=== PATIENT | male | born 1965 | race Caucasian/White ===

== ENCOUNTER 2019-03-14 09:59 | Inpatient (IN) | payer OTHER ==
[2019-03-14 11:27] VITALS: BMI 27.7
--- NOTE | 2019-03-14 12:21 | HP ---
COWS - Scale Resting Pulse: 0= [place] 80 or Below Sweatin= Chills/Flushing Restless Observation: 1= Difficult to Sit Still Pupil Size: 2= Moderately Dilated Bone or Joint Aches: 1= Mild Discomfort Runny Nose/ Eye Tearin= Runny Nose/Eyes GI Upset > 30mins: 1= Stomach Cramp Tremor Observation: 2= Slight Tremor Visible Yawning Observation: 0= None Anxiety or Irritability: 2=Irritable/Anxious Goose Flesh Skin: 0=Smooth Skin COWS Score: 12 CIWA Score Nausea/Vomitin Muscle Tremors: 3 Anxiety: 3 Agitation: 4-Moderately Restless Paroxysmal Sweats: 2 Orientation: 0-Oriented Tacttile Disturbances: 0-None Auditory Disturbances: 2-Mild Harshness/Frighten Visual Disturbances: 2-Mild Sensitivity Headache: 2-Mild CIWA-Ar Total Score: 20 - Admission Criteria OASAS Guidelines: Admission for Medically Managed Detox: Requires at least one of the followin. CIWA greater than 12 2. Seizures within the past 24 hours 3. Delirium tremens within the past 24 hours 4. Hallucinations within the past 24 hours 5. Acute intervention needed for co occurring medical disorder 6. Acute intervention needed for co occurring psychiatric disorder 7. Severe withdrawal that cannot be handled at a lower level of care (continued vomiting, continued diarrhea, abnormal vital signs) requiring intravenous medication and/or fluids 8. Patient presents the following: CIWA greater than 12 Admission Criteria Met: Admission criteria met Admission ROS [facility] Chief Complaint: I NEED TO STOP Allergies/Adverse Reactions: Allergies Allergy/AdvReac Type Severity Reaction Status Date / Time celery Allergy Intermediate Hives Verified 03/14/19 11:23 Fish Containing Products Allergy Intermediate Hives Verified 03/14/19 11:23 History of Present Illness: ANGIE HAS BEEN USING SUBSTANCES SINCE AGE 17 MODERATE USE HEROIN AGE 40 HAS HAD 1+ YEAR ABSTINENCE, SP DETOX REHAB PREVIOUS DETOX ON SUBOXONE MAINT - Ebola screening Have you traveled outside of the country in the last 21 days: No (N) Have you had contact with anyone from an Ebola affected area: No Do you have a fever: No - Review of Systems Constitutional: Loss of Appetite, Malaise EENT: reports: Nose Congestion Respiratory: reports: No Symptoms reported Cardiac: reports: No Symptoms Reported GI: reports: Abdominal cramping : reports: No Symptoms Reported Musculoskeletal: reports: No Symptoms Reported Integumentary: reports: Erythema, Sweating Neuro: reports: Tremors Endocrine: reports: No Symptoms Reported Hematology: reports: No Symptoms Reported Psychiatric: reports: Agitated, Anxious Patient History - Patient Medical History Hx Anemia: No Hx Asthma: No Hx Chronic Obstructive Pulmonary Disease (COPD): No Hx Cancer: No Hx Cardiac Disorders: No Hx Congestive Heart Failure: No Hx Hypertension: No Hx Hypercholesterolemia: No Hx Pacemaker: No HX Cerebrovascular Accident: No Hx Seizures: No Hx Dementia: No Hx Diabetes: No Hx Gastrointestinal Disorders: No Hx Liver Disease: No Hx Genitourinary Disorders: No Hx Sexually Transmitted Disorders: No Hx Renal Disease (ESRD): No Hx Thyroid Disease: No Hx Human Immunodeficiency Virus (HIV): No Hx Hepatitis C: No Hx Depression: No Hx Suicide Attempt: No Hx Bipolar Disorder: No Hx Schizophrenia: No - Patient Surgical History Past Surgical History: No - PPD History Previous Implant?: Yes Documented Results: Negative w/o proof - Smoking Cessation Smoking history: Current every day smoker Have you smoked in the past 12 months: Yes Aproximately how many cigarettes per day: 20 Initiated information on smoking cessation: Yes 'Breaking Loose' booklet given: 03/14/19 - Substances abused Alcohol Substance route: Oral Frequency: Daily Amount used: 3 pints of vodka Age of first use: 15 Date of last use: 03/14/19 Heroin Substance route: Inhalation Frequency: Daily Amount used: 6 bags Age of first use: 40 Date of last use: 03/13/19 Family Disease History - Family Disease History Family Disease History: Diabetes: Mother, Heart Disease: Mother, CA: Mother Admission Physical Exam [facility] - Vital Signs Vital Signs: Vital Signs - 24 hr 03/14/19 11:22 Temperature 97.9 F Pulse Rate 79 Respiratory 20 Rate Blood Pressure 137/86 - Physical General Appearance: Yes: Mild Distress HEENTM: Yes: EOMI, Normocephalic, Nasal Congestion Respiratory: Yes: Chest Non-Tender, Lungs Clear, Normal Breath Sounds Neck: Yes: No masses,lesions,Nodules Breast: Yes: Breast Exam Deferred Cardiology: Yes: Within Normal Limits, Regular Rhythm, Regular Rate, S1, S2 Abdominal: Yes: Normal Bowel Sounds, Non Tender Genitourinary: Yes: Within Normal Limits Back: Yes: Within Normal Limits, Normal Inspection Musculoskeletal: Yes: full range of Motion Extremities: Yes: Other (foot maceration) Neurological: Yes: breaker hand II-XII NML intact, Fully Oriented, Alert Integumentary: Yes: Within Normal Limits, Normal Color Lymphatic: Yes: Within Normal Limits - Diagnostic (1) Opiate dependence Current Visit: Yes Status: Acute (2) Alcohol dependence Current Visit: Yes Status: Acute (3) Alcohol withdrawal Current Visit: Yes Status: Acute (4) Cocaine abuse Current Visit: Yes Status: Acute Cleared for Admission S - Detox or Rehab [facility] Level of Care: Medically Supervised Breathalyzer - Breathalyzer Breathalyzer: 0.015 Urine Drug Screen - Test Device Lot number: [id number] Expiration date: 12/21/20 - Control Is test valid?: Yes - Results Drug screen NEGATIVE: No Urine drug screen results: VANESSA-Cocaine, FEN-Fentanyl, MOP-Opiates, OXY-Oxycodone , MTD-Methadone Inpatient Rehab Admission - Rehab Decision to Admit Inpatient rehab admission?: No
[2019-03-14] MEDS ORDERED: BISMUTH SUBSALICYLATE 524 MG/30 ML UD PO PRN (12:34)
[2019-03-14] MEDS ORDERED: MENTHOL/PHENOL 1 EACH UD MM PRN (12:34)
[2019-03-14] MEDS ORDERED: MAG HYDROX/AL HYDROX/SIMETH 30 ML UNIT-DOSE CUP PO PRN (12:34)
[2019-03-14] MEDS ORDERED: IBUPROFEN 400 MG TABLET (FP) PO PRN (12:34)
[2019-03-14] MEDS ORDERED: chlordiazePOXIDE HCL 10 MG CAPSULE PO PRN (12:34)
[2019-03-14] MEDS ORDERED: MAGNESIUM HYDROX 2400MG/30ML ORAL SUSPENSION 30 ML CUP PO PRN (12:34)
[2019-03-14] MEDS ORDERED: ACETAMINOPHEN 325 MG TABLET (FP) PO PRN ×2 (12:34)
[2019-03-14] MEDS ORDERED: MAGNESIUM CITRATE 300 ML BOTTLE PO PRN (12:34)
[2019-03-14] MEDS ORDERED: METHADONE HCL 10 MG TABLET (FOR DETOX USE ONLY) PO ONE (13:00)
[2019-03-14] MEDS: NICOTINE 21 MG/24 HOURS TOPICAL PATCH TD SCH (13:49)
[2019-03-14] MEDS: chlordiazePOXIDE HCL 25 MG CAPSULE PO SCH ×2 (13:49→22:28)
[2019-03-14] MEDS: NICOTINE POLACRILEX 2 MG GUM BUC PRN ×3 (13:52→20:35)
[2019-03-14] MEDS: TOLNAFTATE 1% POWDER 45 GM POW TP SCH ×2 (15:20→22:29)
--- NOTE | 2019-03-14 17:00 | EKG ---
Test Reason : Blood Pressure : / mmHG Vent. Rate : 061 BPM Atrial Rate : 061 BPM P-R Int : 158 ms QRS Dur : 092 ms QT Int : 438 ms P-R-T Axes : 076 -02 062 degrees QTc Int : 440 ms NORMAL SINUS RHYTHM NORMAL ECG NO PREVIOUS ECGS AVAILABLE Confirmed by AMOR RODRIGUEZ MD ([id number]) on 03/14/2019 4:59:50 PM Referred By: Confirmed By:AMOR RODRIGUEZ MD
[2019-03-14 17:25] LABS: HEMOGLOBIN 15.4 GM/dL (11.7-16.9); MCH 28.8 pg (25.7-33.7); MCHC 32.7 g/dl (32.0-35.9); MEAN PLT VOLUME 9.8 fl (7.5-11.1); PLATELET COUNT 227 K/MM3 (134-434); RBC 5.35 M/mm3 (4.00-5.60); RDW 17.4 % (11.9-15.9)
[2019-03-14 17:39] LABS: ALBUMIN 3.9 g/dl (3.4-5.0); BILIRUBIN,TOTAL 0.4 mg/dL (0.2-1); BLOOD UREA NITROGEN 12.4 mg/dL (7-18); CALCIUM 8.8 mg/dL (8.5-10.1); CREATININE 0.9 mg/dL (0.55-1.3); POTASSIUM 3.9 mmol/L (3.5-5.1); TOT PROT 7.3 g/dl (6.4-8.2)
[2019-03-14] MEDS: MELATONIN 5 MG TABLETS PO PRN (22:28)
[2019-03-14] MEDS: THIAMINE HCL 100 MG TABLET (FP) PO SCH (22:28)
[2019-03-15] MEDS: chlordiazePOXIDE HCL 25 MG CAPSULE PO SCH ×3 (05:51→21:27)
[2019-03-15] MEDS: NICOTINE POLACRILEX 2 MG GUM BUC PRN ×5 (05:55→19:07)
[2019-03-15] MEDS: cloNIDine HCL 0.1 MG TABLET PO PRN ×2 (07:08→20:23)
[2019-03-15] MEDS ORDERED: METHADONE HCL 5 MG TABLET (FOR DETOX USE ONLY) PO ONE (10:00)
[2019-03-15] MEDS: NICOTINE 21 MG/24 HOURS TOPICAL PATCH TD SCH (10:25)
[2019-03-15] MEDS: PRENATAL VITAMINS W/ FOLIC ACID TABLET (FP) PO SCH (10:25)
[2019-03-15] MEDS: TOLNAFTATE 1% POWDER 45 GM POW TP SCH ×2 (10:28→21:31)
--- NOTE | 2019-03-15 12:17 | PN ---
[facility] CIWA - CIWA Score Nausea/Vomitin-No Nausea/No Vomiting Muscle Tremors: 3 Anxiety: 3 Agitation: 3 Paroxysmal Sweats: 2 Orientation: 0-Oriented Tacttile Disturbances: 0-None Auditory Disturbances: 0-None Visual Disturbances: 0-None Headache: 0-None Present CIWA-Ar Total Score: 11 S COWS - Scale Resting Pulse: 0= [place] 80 or Below Sweatin=Flushed/Facial Moisture Restless Observation: 1= Difficult to Sit Still Pupil Size: 0= Normal to Room Light Bone or Joint Aches: 2= Severe Diffuse Aches Runny Nose/ Eye Tearin= Nasal Congestion GI Upset > 30mins: 0= None Tremor Observation of Outstretched Hands: 2= Slight Tremor Visible Yawning Observation: 1= 1-2x During Session Anxiety or Irritability: 1=Feels Anxious/Irritable Goose Flesh Skin: 0=Smooth Skin COWS Score: 10 [facility] Progress Note (SOAP) Subjective: sweats shakes chills body aches irritable agitation Objective: 03/15/19 12:16 Vital Signs Temperature 97.9 F 03/15/19 09:48 Pulse Rate 65 03/15/19 09:48 Respiratory Rate 16 03/15/19 09:48 Blood Pressure 144/91 03/15/19 09:48 O2 Sat by Pulse Oximetry (%) Laboratory Tests 03/14/19 03/14/19 03/14/19 12:44 12:44 12:44 WBC 10.0 RBC 5.35 Hgb 15.4 Hct 47.0 MCV 88.0 MCH 28.8 MCHC 32.7 RDW 17.4 H Plt Count 227 MPV 9.8 Sodium 141 Potassium 3.9 Chloride 103 Carbon Dioxide 31 Anion Gap 7 L BUN 12.4 Creatinine 0.9 Est GFR (CKD-EPI)AfAm 112.62 Est GFR (CKD-EPI)NonAf 97.17 Random Glucose 87 Calcium 8.8 Total Bilirubin 0.4 AST 31 ALT 35 Alkaline Phosphatase 104 Total Protein 7.3 Albumin 3.9 RPR Titer Nonreactive labs noted aaox3 ambulating no acute distress Assessment: 03/15/19 12:17 withdrawal sx Plan: continue detox increase fluids
[2019-03-15] MEDS: THIAMINE HCL 100 MG TABLET (FP) PO SCH (21:27)
[2019-03-15] MEDS: MELATONIN 5 MG TABLETS PO PRN (21:28)
[2019-03-16] MEDS: METHOCARBAMOL 500 MG TABLET PO PRN ×2 (02:45→12:43)
[2019-03-16] MEDS: hydrOXYzine PAMOATE 25 MG CAPSULE (FP) PO PRN ×2 (05:23→19:03)
[2019-03-16] MEDS: chlordiazePOXIDE 5 MG CAPSULE PO SCH ×3 (05:23→21:46)
[2019-03-16] MEDS ORDERED: cloNIDine HCL 0.1 MG TABLET PO ONE (09:46)
[2019-03-16] MEDS ORDERED: METHADONE HCL 10 MG TABLET (FOR DETOX USE ONLY) PO ONE (10:00)
[2019-03-16] MEDS: PRENATAL VITAMINS W/ FOLIC ACID TABLET (FP) PO SCH (10:44)
[2019-03-16] MEDS: NICOTINE 21 MG/24 HOURS TOPICAL PATCH TD SCH (10:45)
[2019-03-16] MEDS: TOLNAFTATE 1% POWDER 45 GM POW TP SCH ×2 (10:46→21:46)
--- NOTE | 2019-03-16 11:47 | PN ---
[facility] CIWA - CIWA Score Nausea/Vomitin-No Nausea/No Vomiting Muscle Tremors: 2 Anxiety: 3 Agitation: 1-Slight > Activity Paroxysmal Sweats: 3 Orientation: 0-Oriented Tacttile Disturbances: 0-None Auditory Disturbances: 0-None Visual Disturbances: 0-None Headache: 1-Very Mild CIWA-Ar Total Score: 10 [facility] COWS - Scale Resting Pulse: 0= [place] 80 or Below Sweatin= Chills/Flushing Restless Observation: 1= Difficult to Sit Still Pupil Size: 0= Normal to Room Light Bone or Joint Aches: 2= Severe Diffuse Aches Runny Nose/ Eye Tearin= None GI Upset > 30mins: 0= None Tremor Observation of Outstretched Hands: 2= Slight Tremor Visible Yawning Observation: 1= 1-2x During Session Anxiety or Irritability: 2=Irritable/Anxious Goose Flesh Skin: 0=Smooth Skin COWS Score: 9 [facility] Progress Note (SOAP) Subjective: c/o headache, sweats, anxiety/irritability, and shakes. Objective: 03/16/19 11:46 Vital Signs 03/16/19 03/16/19 03/16/19 04:26 06:00 09:57 Temperature 97.7 F Pulse Rate 80 78 Respiratory 18 18 18 Rate Blood Pressure 159/111 H 154/22 L 03/16/19 09:58 Temperature Pulse Rate Respiratory Rate Blood Pressure 150/105 H Lab Results WBC 10.0 K/mm3 (4.0-10.0) 03/14/19 12:44 RBC 5.35 M/mm3 (4.00-5.60) 03/14/19 12:44 Hgb 15.4 GM/dL (11.7-16.9) 03/14/19 12:44 Hct 47.0 % (35.4-49) 03/14/19 12:44 MCV 88.0 fl (80-96) 03/14/19 12:44 MCHC 32.7 g/dl (32.0-35.9) 03/14/19 12:44 RDW 17.4 % (11.9-15.9) H 03/14/19 12:44 Plt Count 227 K/MM3 (134-434) 03/14/19 12:44 Sodium 141 mmol/L (136-145) 03/14/19 12:44 Potassium 3.9 mmol/L (3.5-5.1) 03/14/19 12:44 Chloride 103 mmol/L (98-107) 03/14/19 12:44 Carbon Dioxide 31 mmol/L (21-32) 03/14/19 12:44 Anion Gap 7 MMOL/L (8-16) L 03/14/19 12:44 BUN 12.4 mg/dL (7-18) 03/14/19 12:44 Creatinine 0.9 mg/dL (0.55-1.3) 03/14/19 12:44 Random Glucose 87 mg/dL (74-106) 03/14/19 12:44 Calcium 8.8 mg/dL (8.5-10.1) 03/14/19 12:44 Labs noted. Assessment: 03/16/19 11:46 AOX3, in no acute respiratory distress. Full ROM, ambulating in the unit. Withdrawal symptoms. Elevated BP. Plan: continue detox. Give clonidine 0.1mg po once. Repeat and monitor Vital signs.
[2019-03-16] MEDS: NICOTINE POLACRILEX 2 MG GUM BUC PRN ×2 (15:47→18:08)
[2019-03-16] MEDS: THIAMINE HCL 100 MG TABLET (FP) PO SCH (21:46)
[2019-03-16] MEDS: MELATONIN 5 MG TABLETS PO PRN (21:48)
[2019-03-16] MEDS ORDERED: hydrOXYzine PAMOATE 50 MG CAPSULE (FP) PO ONE (23:36)
[2019-03-16] MEDS ORDERED: MELATONIN 5 MG TABLETS PO ONE (23:40)
[2019-03-17] MEDS ORDERED: chlordiazePOXIDE HCL 10 MG CAPSULE PO PRN
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
[2019-03-17] MEDS ORDERED: METHADONE HCL 5 MG TABLET (FOR DETOX USE ONLY) PO ONE (06:00)
[2019-03-17] MEDS: chlordiazePOXIDE HCL 10 MG CAPSULE PO SCH ×3 (06:47→22:33)
--- NOTE | 2019-03-17 07:38 | PN ---
[facility] Progress Note Note: CLIENT RETURNED FROM [facility] REFUSED XRAY REQUESTING MRI WHILE THERE. CLIENT TO FOLLOW UP OUT PATIENT PER RECORDS. CLIENT A/O X3 NAD LYING IN BED COMFORTABLY
[2019-03-17] MEDS: NICOTINE 21 MG/24 HOURS TOPICAL PATCH TD SCH (09:48)
[2019-03-17] MEDS: PRENATAL VITAMINS W/ FOLIC ACID TABLET (FP) PO SCH (09:48)
[2019-03-17] MEDS: TOLNAFTATE 1% POWDER 45 GM POW TP SCH ×2 (09:50→22:33)
[2019-03-17] MEDS: NICOTINE POLACRILEX 2 MG GUM BUC PRN ×3 (09:51→15:59)
[2019-03-17] MEDS ORDERED: cloNIDine HCL 0.1 MG TABLET PO PRN (14:24)
--- NOTE | 2019-03-17 16:07 | PN ---
[facility] CIWA - CIWA Score Nausea/Vomitin-No Nausea/No Vomiting Muscle Tremors: None Anxiety: 3 Agitation: 3 Paroxysmal Sweats: No Perspiration Orientation: 0-Oriented Tacttile Disturbances: 0-None Auditory Disturbances: 0-None Visual Disturbances: 0-None Headache: 0-None Present CIWA-Ar Total Score: 6 S COWS - Scale Resting Pulse: 0= [place] 80 or Below Sweatin= No chills or Flushing Restless Observation: 3= Extraneous Movement Pupil Size: 0= Normal to Room Light Bone or Joint Aches: 1= Mild Discomfort Runny Nose/ Eye Tearin= None GI Upset > 30mins: 0= None Tremor Observation of Outstretched Hands: 0= None Yawning Observation: 0= None Anxiety or Irritability: 2=Irritable/Anxious Goose Flesh Skin: 0=Smooth Skin COWS Score: 6 [facility] Progress Note (SOAP) Subjective: Agitated, stated he just returned from the hospital this morning and trying to get some rest. Noted with elevated b/p. He reports h/o htn and that he is not on any medication. Objective: 03/17/19 16:04 Last Vital Signs Temp Pulse Resp BP Pulse Ox 97.9 F 71 18 154/113 H 03/17/19 13:13 03/17/19 13:13 03/17/19 13:13 03/17/19 13:13 Elevated b/p (has htn as per patient but not on medication) Laboratory Tests 03/14/19 03/14/19 03/14/19 12:44 12:44 12:44 WBC 10.0 RBC 5.35 Hgb 15.4 Hct 47.0 MCV 88.0 MCH 28.8 MCHC 32.7 RDW 17.4 H Plt Count 227 MPV 9.8 Sodium 141 Potassium 3.9 Chloride 103 Carbon Dioxide 31 Anion Gap 7 L BUN 12.4 Creatinine 0.9 Est GFR (CKD-EPI)AfAm 112.62 Est GFR (CKD-EPI)NonAf 97.17 Random Glucose 87 Calcium 8.8 Total Bilirubin 0.4 AST 31 ALT 35 Alkaline Phosphatase 104 Total Protein 7.3 Albumin 3.9 RPR Titer Nonreactive Labs reviewed Assessment: 03/17/19 16:07 Withdrawal sxs Uncontrolled HTN noted Plan: Continue detox Encouraged PO water intake Can discharge patient tomorrow if b/p stable HTN, uncontrolled: clonidine 0.1mg PO q8hr prn, consider initiating routine medication such as norvasc 5mg PO daily. Instructed to follow up with his PCP post discharge for management of his HTN.
[2019-03-17] MEDS: METHOCARBAMOL 500 MG TABLET PO PRN (18:07)
[2019-03-17] MEDS: THIAMINE HCL 100 MG TABLET (FP) PO SCH (22:32)
[2019-03-17] MEDS: MELATONIN 5 MG TABLETS PO PRN (22:33)
[2019-03-18] MEDS ORDERED: chlordiazePOXIDE HCL 10 MG CAPSULE PO ONE (05:00)
[2019-03-18] MEDS: PRENATAL VITAMINS W/ FOLIC ACID TABLET (FP) PO SCH (09:15)
[2019-03-18] MEDS: NICOTINE 21 MG/24 HOURS TOPICAL PATCH TD SCH (09:15)
[2019-03-18] MEDS: TOLNAFTATE 1% POWDER 45 GM POW TP SCH (09:15)
--- NOTE | 2019-03-18 09:30 | PN ---
S Progress Note Note: pt refused to have an x-ray to his back; pt states he prefers to get an MRI and is going to see his PCP for a referral.
--- NOTE | 2019-03-18 09:33 | DS ---
[facility] Detox Discharge Summary Admission Date: 03/14/19 Discharge Date: 03/18/19 - History Present History: Alcohol Dependence, Cocaine Dependence, Opioid Dependence - Physical Exam Results Vital Signs: Vital Signs Temperature 97.3 F L 03/18/19 06:00 Pulse Rate 72 03/18/19 06:00 Respiratory Rate 18 03/18/19 06:00 Blood Pressure 134/97 03/18/19 06:00 O2 Sat by Pulse Oximetry (%) Pertinent Admission Physical Exam Findings: pt arrived in withdrawal sx Vital Signs Temperature 97.3 F L 03/18/19 06:00 Pulse Rate 72 03/18/19 06:00 Respiratory Rate 18 03/18/19 06:00 Blood Pressure 134/97 03/18/19 06:00 O2 Sat by Pulse Oximetry (%) Laboratory Tests 03/14/19 03/14/19 03/14/19 12:44 12:44 12:44 WBC 10.0 RBC 5.35 Hgb 15.4 Hct 47.0 MCV 88.0 MCH 28.8 MCHC 32.7 RDW 17.4 H Plt Count 227 MPV 9.8 Sodium 141 Potassium 3.9 Chloride 103 Carbon Dioxide 31 Anion Gap 7 L BUN 12.4 Creatinine 0.9 Est GFR (CKD-EPI)AfAm 112.62 Est GFR (CKD-EPI)NonAf 97.17 Random Glucose 87 Calcium 8.8 Total Bilirubin 0.4 AST 31 ALT 35 Alkaline Phosphatase 104 Total Protein 7.3 Albumin 3.9 RPR Titer Nonreactive today pt is aaox3 ambulating no acute distress no s/s of withdrawals - Treatment Hospital Course: Detox Protocol Followed, Detoxed Safely, Responded well, Discharged Condition Good, Rehab Referral Accepted Patient has Accepted a Rehab Referral to: pt declined reheb; referral provided - Medication Discharge Medications: Ambulatory Orders NK [No Known Home Medication] 03/14/19 - Diagnosis (1) Alcohol dependence Current Visit: Yes Status: Chronic Qualifiers: Substance use status: uncomplicated Qualified Code(s): F10.20 - Alcohol dependence, uncomplicated (2) Cocaine abuse Current Visit: Yes Status: Chronic (3) Opiate dependence Current Visit: Yes Status: Chronic Qualifiers: Substance use status: uncomplicated Qualified Code(s): F11.20 - Opioid dependence, uncomplicated (4) Low back pain Current Visit: No Status: Acute - AMA Did Patient Leave Against Medical Advice: No
[2019-03-18 09:34] VITALS: BP 134/97; PULSE 72; TEMP 97.3
== END 2019-03-18 09:30 | disposition home or self-care (01) | DRG 773 ==
LOC: YASAS 09:59 → Y6N 12:46
PROVIDERS: ADMIT Surgery; ATTEND Surgery
PROC: HZ2ZZZZ Detoxification Services for Substance Abuse Treatment (ICD-10-PCS; principal; 2019-03-14)
DX: F11.23 Opioid dependence with withdrawal (principal); F10.230 Alcohol dependence with withdrawal, uncomplicated; F14.10 Cocaine abuse, uncomplicated; I10 Essential (primary) hypertension; M54.5 Low back pain; W01.190A Fall on same level from slipping, tripping and stumbling with subsequent striking against furniture, initial encounter; Y93.89 Activity, other specified; Y92.230 Patient room in hospital as the place of occurrence of the external cause; Y99.8 Other external cause status
CPT/HCPCS: 36415; 80053; 85027; 86480; 86593; 93005; 93010; J0735

== ENCOUNTER 2019-03-17 01:59 | Emergency (ER) | payer OTHER ==
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
[2019-03-17] MEDS ORDERED: ACETAMINOPHEN 500 MG TABLET (FP) PO ONE (02:43)
[2019-03-17] MEDS ORDERED: ACETAMINOPHEN 325 MG TABLET (FP) ONE (03:18)
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
[2019-03-17 05:21] VITALS: BMI 27.7
[2019-03-17 06:56] VITALS: BP 142/92; PULSE 66; TEMP 98.4
== END 2019-03-17 06:05 | disposition home or self-care (01) ==
LOC: JER 01:59
DX: M54.5 Low back pain (principal); W51.XXXA Accidental striking against or bumped into by another person, initial encounter; Y93.89 Activity, other specified; Y92.238 Other place in hospital as the place of occurrence of the external cause; Y99.8 Other external cause status; F10.20 Alcohol dependence, uncomplicated; F11.20 Opioid dependence, uncomplicated
CPT/HCPCS: 99282-25

== ENCOUNTER 2019-04-25 12:11 | Inpatient (IN) | payer OTHER ==
[2019-04-25 15:02] VITALS: BMI 27.0
--- NOTE | 2019-04-25 17:18 | HP ---
COWS - Scale Resting Pulse: 0= [place] 80 or Below Sweatin=Flushed/Facial Moisture Restless Observation: 1= Difficult to Sit Still Pupil Size: 1= Pupils >than Normal Bone or Joint Aches: 2= Severe Diffuse Aches Runny Nose/ Eye Tearin= Nasal Congestion GI Upset > 30mins: 3= Vomiting/Diarrhea Tremor Observation: 4= Gross Tremor/Twitching Yawning Observation: 0= None Anxiety or Irritability: 1=Feels Anxious/Irritable Goose Flesh Skin: 0=Smooth Skin COWS Score: 15 CIWA Score Nausea/Vomitin Muscle Tremors: 4-Moderate,w/Arms Extend Anxiety: 2 Agitation: 2 Paroxysmal Sweats: 2 Orientation: 1-Uncertain about Date Tacttile Disturbances: 1-Very Mild Itch/Numbness Auditory Disturbances: 0-None Visual Disturbances: 0-None Headache: 0-None Present CIWA-Ar Total Score: 15 - Admission Criteria OASAS Guidelines: Admission for Medically Managed Detox: Requires at least one of the followin. CIWA greater than 12 2. Seizures within the past 24 hours 3. Delirium tremens within the past 24 hours 4. Hallucinations within the past 24 hours 5. Acute intervention needed for co occurring medical disorder 6. Acute intervention needed for co occurring psychiatric disorder 7. Severe withdrawal that cannot be handled at a lower level of care (continued vomiting, continued diarrhea, abnormal vital signs) requiring intravenous medication and/or fluids 8. Admitting History and Physical - Smoking History Smoking history: Current every day smoker Have you smoked in the past 12 months: Yes Aproximately how many cigarettes per day: 20 - Alcohol/Substance Use Hx Alcohol Use: Yes Admission [facility] Chief Complaint: "detox from alcohol and heroin" Allergies/Adverse Reactions: Allergies Allergy/AdvReac Type Severity Reaction Status Date / Time celery Allergy Intermediate Hives Verified 04/25/19 14:58 Fish Containing Products Allergy Intermediate Hives Verified 04/25/19 14:58 No Known Drug Allergies Allergy Verified 04/25/19 14:58 History of Present Illness: 53 year old male with a history of heroin and alcohol abuse presents for detox. Was in detox back in 03/14, relapsed 1 week after detox. 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 Family: has 1 son, healthy, lives in [place]; is not Exam Limitations: No Limitations - Ebola screening Have you traveled outside of the country in the last 21 days: No Have you had contact with anyone from an Ebola affected area: No - Review of Systems Constitutional: Chills, Diaphoresis, Loss of Appetite EENT: reports: Nose Congestion Respiratory: reports: Productive cough Cardiac: reports: Palpitations GI: reports: Diarrhea, Nausea, Poor Appetite, Vomiting : reports: No Symptoms Reported Musculoskeletal: reports: Back Pain, Joint Pain Integumentary: reports: No Symptoms Reported Neuro: reports: Headache Endocrine: reports: No Symptoms Reported Hematology: reports: No Symptoms Reported Psychiatric: reports: Judgement Intact, Mood/Affect Appropiate, Orientated x3, Anxious Patient History - Patient Medical History Hx Anemia: No Hx Asthma: No Hx Chronic Obstructive Pulmonary Disease (COPD): No Hx Cancer: No Hx Cardiac Disorders: No Hx Congestive Heart Failure: No Hx Hypertension: No Hx Hypercholesterolemia: No Hx Pacemaker: No HX Cerebrovascular Accident: No Hx Seizures: No Hx Dementia: No Hx Diabetes: No Hx Gastrointestinal Disorders: No Hx Liver Disease: No Hx Genitourinary Disorders: No Hx Sexually Transmitted Disorders: No Hx Renal Disease (ESRD): No Hx Thyroid Disease: No Hx Human Immunodeficiency Virus (HIV): No Hx Hepatitis C: No Hx Depression: No Hx Suicide Attempt: No Hx Bipolar Disorder: No Hx Schizophrenia: No - Patient Surgical History Past Surgical History: No Hx Neurologic Surgery: No Hx Cataract Extraction: No Hx Cardiac Surgery: No Hx Lung Surgery: No Hx Breast Surgery: No Hx Breast Biopsy: No Hx Abdominal Surgery: No Hx Appendectomy: No Hx Cholecystectomy: No Hx Genitourinary Surgery: No Hx Section: No Hx Orthopedic Surgery: No Anesthesia Reaction: No - Smoking Cessation Smoking history: Current every day smoker Have you smoked in the past 12 months: Yes Aproximately how many cigarettes per day: 20 Initiated information on smoking cessation: Yes 'Breaking Loose' booklet given: 04/25/19 - Substances abused Alcohol Substance route: Oral Frequency: Daily Amount used: 3 pints of vodka Age of first use: 15 Date of last use: 04/24/19 Heroin Substance route: Inhalation Frequency: Daily Amount used: 6 bags Age of first use: 40 Date of last use: 04/24/19 Admission Physical Exam [facility] - Vital Signs Vital Signs: Vital Signs - 24 hr 04/25/19 04/25/19 14:58 17:10 Temperature 98.3 F 98.3 F Pulse Rate 72 72 Respiratory 18 18 Rate Blood Pressure 161/126 H 161/126 H - Physical General Appearance: Yes: Within Normal Limits, No Apparent Distress, Nourished, Appropriately Dressed HEENTM: Yes: Within Normal Limits, Hearing grossly Normal, Normal ENT Inspection , Normal Voice Respiratory: Yes: Within Normal Limits, Chest Non-Tender, Lungs Clear, Normal Breath Sounds Neck: Yes: Within Normal Limits Cardiology: Yes: Regular Rhythm, Regular Rate Abdominal: Yes: Normal Bowel Sounds, Non Tender, Flat, Soft Genitourinary: Yes: Within Normal Limits Musculoskeletal: Yes: Within Normal Limits, full range of Motion, Gait Steady Extremities: Yes: Within Normal Limits, Normal Capillary Refill, Normal Range of Motion Neurological: Yes: 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 NML intact, Fully Oriented, Motor Strength 5/5, Normal Mood/Affect Integumentary: Yes: Normal Color, Dry, Warm - Diagnostic (1) Alcohol dependence Current Visit: No Status: Chronic Qualifiers: Substance use status: uncomplicated Qualified Code(s): F10.20 - Alcohol dependence, uncomplicated (2) Opiate dependence Current Visit: No Status: Chronic Qualifiers: Substance use status: uncomplicated Qualified Code(s): F11.20 - Opioid dependence, uncomplicated Cleared for Admission [facility] - Detox or Rehab [facility] Level of Care: Medically Supervised Detox Regimen/Protocol: Methadone/Librium Breathalyzer - Breathalyzer Breathalyzer: 0 Urine Drug Screen - Test Device Lot number: [id number] Expiration date: 12/21/20 - Control Is test valid?: Yes - Results Drug screen NEGATIVE: No Urine drug screen results: MOP-Opiates, OXY-Oxycodone Inpatient Rehab Admission - Rehab Decision to Admit Inpatient rehab admission?: No
[2019-04-25] MEDS ORDERED: MAGNESIUM CITRATE 300 ML BOTTLE PO PRN (17:35)
[2019-04-25] MEDS ORDERED: MAG HYDROX/AL HYDROX/SIMETH 30 ML UNIT-DOSE CUP PO PRN (17:35)
[2019-04-25] MEDS ORDERED: ACETAMINOPHEN 325 MG TABLET (FP) PO PRN ×2 (17:35)
[2019-04-25] MEDS ORDERED: IBUPROFEN 400 MG TABLET (FP) PO PRN (17:35)
[2019-04-25] MEDS ORDERED: MAGNESIUM HYDROX 2400MG/30ML ORAL SUSPENSION 30 ML CUP PO PRN (17:35)
[2019-04-25] MEDS ORDERED: METHOCARBAMOL 500 MG TABLET PO PRN (17:35)
[2019-04-25] MEDS ORDERED: hydrOXYzine PAMOATE 25 MG CAPSULE (FP) PO PRN (17:35)
[2019-04-25] MEDS ORDERED: MENTHOL/PHENOL 1 EACH UD MM PRN (17:35)
[2019-04-25] MEDS ORDERED: BISMUTH SUBSALICYLATE 524 MG/30 ML UD PO PRN (17:35)
[2019-04-25] MEDS ORDERED: PROCHLORPERAZINE MALEATE 5 MG TABLET PO PRN (17:35)
--- NOTE | 2019-04-25 17:39 | PN ---
Teaching Attending Note Name of Resident: Srinivas Hagen ATTENDING PHYSICIAN STATEMENT I saw and evaluated the patient. I reviewed the resident's note and discussed the case with the resident. I agree with the resident's findings and plan as documented. SUBJECTIVE: 53 year old male with a history of heroin and alcohol abuse presents for detox. COWS and CIWA both 15 Alcohol: last drink last night, 1-3 pints vodka every day, started at age 15 , reports possible seizure after passing out but does not remember Heroin Use: 5-7 bags per day, every day via inhalation , IVDU in the past , started use @ age 40 . 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 Opioid dependence - Methadone detox. Nicotine dependence - smoking cessation counselling
[2019-04-25] MEDS ORDERED: METHADONE HCL 10 MG TABLET (FOR DETOX USE ONLY) PO ONE (19:00)
[2019-04-25] MEDS ORDERED: chlordiazePOXIDE HCL 25 MG CAPSULE PO SCH (19:00)
[2019-04-25] MEDS ORDERED: chlordiazePOXIDE HCL 25 MG CAPSULE PO ONE (19:00)
[2019-04-25] MEDS ORDERED: cloNIDine HCL 0.1 MG TABLET PO ONE (19:34)
--- NOTE | 2019-04-25 19:37 | PN ---
S Progress Note Note: Vital Signs Temperature 98.3 F 04/25/19 17:10 Pulse Rate 72 04/25/19 17:10 Respiratory Rate 18 04/25/19 17:10 Blood Pressure 161/126 H 04/25/19 17:10 O2 Sat by Pulse Oximetry (%) asymptomatic elevated BP was given scheduled dose of methadone and librium withdrawal sx one time dose clonidine 0.1 mg patient scheduled for librium 50mg 10 pm increase fluids repeat BP in an hour continue to monitor
[2019-04-25] MEDS: MELATONIN 5 MG TABLETS PO PRN (22:10)
[2019-04-25] MEDS: THIAMINE HCL 100 MG TABLET (FP) PO SCH (22:10)
[2019-04-25] MEDS: chlordiazePOXIDE HCL 25 MG CAPSULE PO SCH (22:10)
[2019-04-25] MEDS: NICOTINE POLACRILEX 2 MG GUM BUC PRN (22:11)
[2019-04-26] MEDS: chlordiazePOXIDE HCL 25 MG CAPSULE PO SCH ×4 (07:54→22:08)
[2019-04-26] MEDS ORDERED: METHADONE HCL 5 MG TABLET (FOR DETOX USE ONLY) PO ONE (10:00)
[2019-04-26] MEDS: PRENATAL VITAMINS W/ FOLIC ACID TABLET (FP) PO SCH (10:13)
[2019-04-26] MEDS: NICOTINE 21 MG/24 HOURS TOPICAL PATCH TD SCH (10:15)
[2019-04-26] MEDS: NICOTINE POLACRILEX 2 MG GUM BUC PRN ×3 (10:15→15:43)
--- NOTE | 2019-04-26 11:15 | PN ---
S CIWA - CIWA Score Nausea/Vomitin Muscle Tremors: 2 Anxiety: 3 Agitation: 2 Paroxysmal Sweats: 2 Orientation: 0-Oriented Tacttile Disturbances: 0-None Auditory Disturbances: 0-None Visual Disturbances: 0-None Headache: 0-None Present CIWA-Ar Total Score: 11 S COWS - Scale Resting Pulse: 0= [place] 80 or Below Sweatin=Flushed/Facial Moisture Restless Observation: 1= Difficult to Sit Still Pupil Size: 0= Normal to Room Light Bone or Joint Aches: 2= Severe Diffuse Aches Runny Nose/ Eye Tearin= None GI Upset > 30mins: 2= Nausea/Diarrhea Tremor Observation of Outstretched Hands: 2= Slight Tremor Visible Yawning Observation: 0= None Anxiety or Irritability: 2=Irritable/Anxious Goose Flesh Skin: 0=Smooth Skin COWS Score: 11 [facility] Progress Note (SOAP) Subjective: Patient c/o chills, sweating, sleep disturbance, nausea and restlessness. Objective: 04/26/19 11:12 Vital Signs Temperature 98.1 F 04/26/19 06:00 Pulse Rate 69 04/26/19 06:00 Respiratory Rate 18 04/26/19 06:00 Blood Pressure 127/93 04/26/19 06:00 O2 Sat by Pulse Oximetry (%) alert and oriented x 3 skin warm, + facial moisture +perrla, eoms intact bl gi nt, nd ext + tremors, no visible edema anxious, restlessness Assessment: 04/26/19 11:14 Opiod/Etoh withdrawal symptoms Plan: Continue detox encourage oral fluids monitor clincally
[2019-04-26] MEDS: chlordiazePOXIDE HCL 25 MG CAPSULE PO PRN ×2 (11:48→23:59)
[2019-04-26] MEDS ORDERED: cloNIDine HCL 0.1 MG TABLET PO ONE (18:15)
[2019-04-26] MEDS: NICOTINE POLACRILEX 4 MG GUM BUC PRN (20:13)
[2019-04-26] MEDS: MELATONIN 5 MG TABLETS PO PRN (22:08)
[2019-04-26] MEDS: THIAMINE HCL 100 MG TABLET (FP) PO SCH (22:08)
[2019-04-27] MEDS: chlordiazePOXIDE HCL 25 MG CAPSULE PO SCH ×4 (07:13→22:11)
[2019-04-27] MEDS ORDERED: METHADONE HCL 10 MG TABLET (FOR DETOX USE ONLY) PO ONE (10:00)
[2019-04-27] MEDS: PRENATAL VITAMINS W/ FOLIC ACID TABLET (FP) PO SCH (10:42)
[2019-04-27] MEDS: NICOTINE 21 MG/24 HOURS TOPICAL PATCH TD SCH (10:43)
[2019-04-27] MEDS: NICOTINE POLACRILEX 4 MG GUM BUC PRN ×4 (13:02→22:13)
[2019-04-27] MEDS: chlordiazePOXIDE HCL 25 MG CAPSULE PO PRN (13:02)
--- NOTE | 2019-04-27 15:34 | PN ---
S CIWA - CIWA Score Nausea/Vomitin Muscle Tremors: None Anxiety: 4-Mod. Anxious/Guarded Agitation: 3 Paroxysmal Sweats: No Perspiration Orientation: 0-Oriented Tacttile Disturbances: 0-None Auditory Disturbances: 0-None Visual Disturbances: 1-Very Mild Sensitivity Headache: 0-None Present CIWA-Ar Total Score: 11 [facility] COWS - Scale Resting Pulse: 0= [place] 80 or Below Sweatin= No chills or Flushing Restless Observation: 1= Difficult to Sit Still Pupil Size: 0= Normal to Room Light Bone or Joint Aches: 2= Severe Diffuse Aches Runny Nose/ Eye Tearin= None GI Upset > 30mins: 2= Nausea/Diarrhea Tremor Observation of Outstretched Hands: 2= Slight Tremor Visible Yawning Observation: 1= 1-2x During Session Anxiety or Irritability: 2=Irritable/Anxious Goose Flesh Skin: 0=Smooth Skin COWS Score: 10 [facility] Progress Note (SOAP) Subjective: Anxious, Body Aches, Nausea, Anxious, Restless. Objective: PATIENT A & O X 3, OBSERVED AMBULATING ON DETOX UNIT UNASSISTED. IN NO ACUTE DISTRESS. 04/27/19 15:36 Vital Signs Temperature 98.8 F 04/27/19 09:09 Pulse Rate 69 04/27/19 14:33 Respiratory Rate 18 04/27/19 14:33 Blood Pressure 127/88 04/27/19 14:33 O2 Sat by Pulse Oximetry (%) PATIENT REFUSED TO HAVE DETOX ADMISSION LABS DRAWN. 04/27/19 15:36 Assessment: 04/27/19 15:37 WITHDRAWAL SYMPTOMS. Plan: CONTINUE DETOX. PRN COMPAZINE PO FOR NAUSEA. DUE TO SEVERITY OF CURRENT WITHDRAWAL SYMPTOMS, ADDITIONAL DOSE OF DETOX METHADONE, 10 MG ORDERED FOR TOMORROW AM FOR PATIENT. PATIENT WILL NOW COMPLETED METHADONE DETOX REGIMEN WITH 5 MG IN AM ON 04/29/2019.
[2019-04-27] MEDS: THIAMINE HCL 100 MG TABLET (FP) PO SCH (22:11)
[2019-04-27] MEDS: MELATONIN 5 MG TABLETS PO PRN (22:12)
[2019-04-28] MEDS ORDERED: chlordiazePOXIDE HCL 10 MG CAPSULE PO PRN
[2019-04-28] MEDS: chlordiazePOXIDE HCL 10 MG CAPSULE PO SCH ×4 (05:44→22:10)
[2019-04-28] MEDS: NICOTINE POLACRILEX 4 MG GUM BUC PRN ×6 (05:45→22:29)
[2019-04-28] MEDS ORDERED: METHADONE HCL 5 MG TABLET (FOR DETOX USE ONLY) PO ONE (06:00)
[2019-04-28] MEDS ORDERED: METHADONE HCL 10 MG TABLET (FOR DETOX USE ONLY) PO ONE (10:00)
--- NOTE | 2019-04-28 10:04 | PN ---
[facility] CIWA - CIWA Score Nausea/Vomitin-Mild Nausea/No Vomiting Muscle Tremors: 2 Anxiety: 2 Agitation: 2 Paroxysmal Sweats: 1-Minimal Palms Moist Orientation: 0-Oriented Tacttile Disturbances: 0-None Auditory Disturbances: 1-Very Mild Visual Disturbances: 0-None Headache: 0-None Present CIWA-Ar Total Score: 9 [facility] COWS - Scale Resting Pulse: 0= [place] 80 or Below Sweatin= Chills/Flushing Restless Observation: 0= Sits Still Pupil Size: 0= Normal to Room Light Bone or Joint Aches: 1= Mild Discomfort Runny Nose/ Eye Tearin= Nasal Congestion GI Upset > 30mins: 1= Stomach Cramp Tremor Observation of Outstretched Hands: 2= Slight Tremor Visible Yawning Observation: 1= 1-2x During Session Anxiety or Irritability: 2=Irritable/Anxious Goose Flesh Skin: 0=Smooth Skin COWS Score: 9 S Progress Note (SOAP) Subjective: doing well with librium and methadone detox regimen ate breakfast tolerate food and fluid well less tremor mild body aches Objective: 04/28/19 10:03 Vital Signs Temperature 97.0 F L 04/28/19 09:05 Pulse Rate 65 04/28/19 09:05 Respiratory Rate 18 04/28/19 09:05 Blood Pressure 128/88 04/28/19 09:05 O2 Sat by Pulse Oximetry (%) 04/28/19 10:04 see 02/2019 lab Assessment: 04/28/19 10:05 alcohol and opiate withdrawal sx 04/28/19 10:06 discuss medication assisted treatment program Plan: continue librium and methadone detox 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
[2019-04-28] MEDS: NICOTINE 21 MG/24 HOURS TOPICAL PATCH TD SCH (10:27)
[2019-04-28] MEDS: PRENATAL VITAMINS W/ FOLIC ACID TABLET (FP) PO SCH (10:27)
[2019-04-28] MEDS: MELATONIN 5 MG TABLETS PO PRN (22:10)
[2019-04-28] MEDS: THIAMINE HCL 100 MG TABLET (FP) PO SCH (22:10)
[2019-04-29] MEDS ORDERED: METHADONE HCL 5 MG TABLET (FOR DETOX USE ONLY) PO ONE (06:00)
[2019-04-29] MEDS: chlordiazePOXIDE HCL 10 MG CAPSULE PO SCH ×2 (06:13→17:18)
[2019-04-29] MEDS: NICOTINE 21 MG/24 HOURS TOPICAL PATCH TD SCH (10:04)
[2019-04-29] MEDS: NICOTINE POLACRILEX 4 MG GUM BUC PRN ×5 (10:04→22:28)
[2019-04-29] MEDS: PRENATAL VITAMINS W/ FOLIC ACID TABLET (FP) PO SCH (10:04)
[2019-04-29 11:19] LABS: ALBUMIN 3.6 g/dl (3.4-5.0); BILIRUBIN,TOTAL 0.4 mg/dL (0.2-1); BLOOD UREA NITROGEN 10.4 mg/dL (7-18); CALCIUM 8.7 mg/dL (8.5-10.1); POTASSIUM 4.1 mmol/L (3.5-5.1); TOT PROT 6.3 g/dl (6.4-8.2)
[2019-04-29 11:30] LABS: HEMATOCRIT 45.1 % (35.4-49); HEMOGLOBIN 14.9 GM/dL (11.7-16.9); MCH 28.3 pg (25.7-33.7); MCHC 33.2 g/dl (32.0-35.9); MEAN CELL VOLUME 85.3 fl (80-96); MEAN PLT VOLUME 9.2 fl (7.5-11.1); PLATELET COUNT 201 K/MM3 (134-434); RBC 5.28 M/mm3 (4.00-5.60); RDW 18.3 % (11.9-15.9); WHITE BLOOD COUNT 8.6 K/mm3 (4.0-10.0)
[2019-04-29] MEDS ORDERED: cloNIDine HCL 0.1 MG TABLET PO ONE ×2 (12:38→16:53)
--- NOTE | 2019-04-29 12:46 | PN ---
S CIWA - CIWA Score Nausea/Vomitin Muscle Tremors: None Anxiety: 4-Mod. Anxious/Guarded Agitation: 2 Paroxysmal Sweats: 3 Orientation: 0-Oriented Tacttile Disturbances: 2-Mild Itch/Numbness/Burn (Chills.) Auditory Disturbances: 0-None Visual Disturbances: 0-None Headache: 0-None Present CIWA-Ar Total Score: 13 [facility] COWS - Scale Resting Pulse: 0= [place] 80 or Below Sweatin= Chills/Flushing Restless Observation: 1= Difficult to Sit Still Pupil Size: 0= Normal to Room Light Bone or Joint Aches: 1= Mild Discomfort Runny Nose/ Eye Tearin= None GI Upset > 30mins: 2= Nausea/Diarrhea Tremor Observation of Outstretched Hands: 0= None Yawning Observation: 1= 1-2x During Session Anxiety or Irritability: 2=Irritable/Anxious Goose Flesh Skin: 3=Piloerection COWS Score: 11 [facility] Progress Note (SOAP) Subjective: Sweating, Nausea, H/A, Poor Appetite, Diarrhea, Hot / Cold Sensations, Anxious. Objective: PATIENT A & O X 3, OBSERVED AMBULATING ON DETOX UNIT UNASSISTED. IN NO ACUTE DISTRESS. 04/29/19 12:44 Vital Signs Temperature 98.2 F 04/29/19 09:06 Pulse Rate 76 04/29/19 09:06 Respiratory Rate 18 04/29/19 09:06 Blood Pressure 136/104 H 04/29/19 09:06 O2 Sat by Pulse Oximetry (%) Laboratory Tests 04/29/19 04/29/19 04/29/19 07:45 07:45 07:45 WBC 8.6 RBC 5.28 Hgb 14.9 Hct 45.1 MCV 85.3 MCH 28.3 MCHC 33.2 RDW 18.3 H Plt Count 201 MPV 9.2 Sodium 141 Potassium 4.1 Chloride 103 Carbon Dioxide 32 Anion Gap 6 L BUN 10.4 Creatinine 1.0 Est GFR (CKD-EPI)AfAm 99.15 Est GFR (CKD-EPI)NonAf 85.55 Random Glucose 90 Calcium 8.7 Total Bilirubin 0.4 AST 11 L ALT 15 Alkaline Phosphatase 93 Total Protein 6.3 L Albumin 3.6 RPR Titer Nonreactive HIV 1&2 Antibody Screen HIV P24 Antigen 04/29/19 07:45 WBC RBC Hgb Hct MCV MCH MCHC RDW Plt Count MPV Sodium Potassium Chloride Carbon Dioxide Anion Gap BUN Creatinine Est GFR (CKD-EPI)AfAm Est GFR (CKD-EPI)NonAf Random Glucose Calcium Total Bilirubin AST ALT Alkaline Phosphatase Total Protein Albumin RPR Titer HIV 1&2 Antibody Screen Negative HIV P24 Antigen Negative LABS NOTED. RESULT OF DETOX ADMISSION HCV AB PENDING. 04/29/19 12:44 Assessment: 04/29/19 12:45 WITHDRAWAL SYMPTOMS. Plan: CONTINUE DETOX. INCREASE DAILY PO WATER INTAKE. PRN PEPTO-BISMOL PO FOR DIARRHEA. PRN COMPAZINE PO FOR NAUSEA. PATIENT SCHEDULED FOR D/C FROM DETOX UNIT TOMORROW.
[2019-04-29 21:34] VITALS: PULSE 69
[2019-04-29] MEDS: MELATONIN 5 MG TABLETS PO PRN (22:21)
[2019-04-29] MEDS: THIAMINE HCL 100 MG TABLET (FP) PO SCH (22:21)
[2019-04-30] MEDS ORDERED: chlordiazePOXIDE HCL 10 MG CAPSULE PO ONE (05:00)
[2019-04-30 06:21] VITALS: BP 100/53; TEMP 97.1
--- NOTE | 2019-04-30 17:48 | DS ---
[facility] Detox Discharge Summary Admission Date: 04/25/19 Discharge Date: 04/30/19 - History Present History: Alcohol Dependence, Opioid Dependence Additional Comments: PATIENT GOING HOME FOR TODAY, THEN WILL GO TO [facility] ([place], [place]) TOMORROW. PATIENT REPORTS THAT HE FEELS SOMEWHAT BETTER TODAY THAN HE HE HAS OVER THE LAST FEW DAYS DURING HIS DETOX. PATIENT WAS DISCHARGED FROM DETOX UNIT IN STABLE MEDICAL CONDITION. Pertinent Past History: Denies. - Physical Exam Results Vital Signs: Vital Signs Temperature 97.1 F L 04/30/19 06:21 Pulse Rate 69 04/30/19 06:21 Respiratory Rate 18 04/30/19 06:21 Blood Pressure 100/53 L 04/30/19 06:21 O2 Sat by Pulse Oximetry (%) Pertinent Admission Physical Exam Findings: WITHDRAWAL SYMPTOMS. Laboratory Tests 04/29/19 04/29/19 04/29/19 07:45 07:45 07:45 WBC 8.6 RBC 5.28 Hgb 14.9 Hct 45.1 MCV 85.3 MCH 28.3 MCHC 33.2 RDW 18.3 H Plt Count 201 MPV 9.2 Sodium 141 Potassium 4.1 Chloride 103 Carbon Dioxide 32 Anion Gap 6 L BUN 10.4 Creatinine 1.0 Est GFR (CKD-EPI)AfAm 99.15 Est GFR (CKD-EPI)NonAf 85.55 Random Glucose 90 Calcium 8.7 Total Bilirubin 0.4 AST 11 L ALT 15 Alkaline Phosphatase 93 Total Protein 6.3 L Albumin 3.6 RPR Titer Nonreactive Hep C Ab Diagnostic HIV 1&2 Antibody Screen HIV P24 Antigen 04/29/19 04/29/19 07:45 07:45 WBC RBC Hgb Hct MCV MCH MCHC RDW Plt Count MPV Sodium Potassium Chloride Carbon Dioxide Anion Gap BUN Creatinine Est GFR (CKD-EPI)AfAm Est GFR (CKD-EPI)NonAf Random Glucose Calcium Total Bilirubin AST ALT Alkaline Phosphatase Total Protein Albumin RPR Titer Hep C Ab Diagnostic 0.2 HIV 1&2 Antibody Screen Negative HIV P24 Antigen Negative LABS NOTED. - Treatment Hospital Course: Detox Protocol Followed, Detoxed Safely, Responded well, Discharged Condition Good, Rehab Referral Accepted Patient has Accepted a Rehab Referral to: [facility] ([place], [place]). - Medication Discharge Medications: Ambulatory Orders Naloxone HCl [Narcan] 4 mg NS ASDIR PRN #1 spray 04/28/19 - Diagnosis (1) Alcohol dependence Status: Acute Qualifiers: Substance use status: in withdrawal Complication of substance-induced condition: uncomplicated Qualified Code(s): F10.230 - Alcohol dependence with withdrawal, uncomplicated (2) Opiate dependence Status: Acute Qualifiers: Substance use status: in withdrawal Qualified Code(s): F11.23 - Opioid dependence with withdrawal - AMA Did Patient Leave Against Medical Advice: No [facility] CIWA - CIWA Score Nausea/Vomitin-No Nausea/No Vomiting Muscle Tremors: 2 Anxiety: 3 Agitation: 0-Normal Activity Paroxysmal Sweats: No Perspiration Orientation: 0-Oriented Tacttile Disturbances: 1-Very Mild Itch/Numbness Auditory Disturbances: 0-None Visual Disturbances: 0-None Headache: 0-None Present CIWA-Ar Total Score: 6 [facility] COWS - Scale Resting Pulse: 0= [place] 80 or Below Sweatin= Chills/Flushing Restless Observation: 1= Difficult to Sit Still Pupil Size: 0= Normal to Room Light Bone or Joint Aches: 1= Mild Discomfort Runny Nose/ Eye Tearin= None GI Upset > 30mins: 0= None Tremor Observation of Outstretched Hands: 0= None Yawning Observation: 1= 1-2x During Session Anxiety or Irritability: 1=Feels Anxious/Irritable Goose Flesh Skin: 0=Smooth Skin COWS Score: 5
== END 2019-04-30 08:58 | disposition home or self-care (01) | DRG 773 ==
LOC: YASAS 12:11 → Y3N 18:18
PROVIDERS: ADMIT Surgery; ATTEND Surgery
PROC: HZ2ZZZZ Detoxification Services for Substance Abuse Treatment (ICD-10-PCS; principal; 2019-04-25)
DX: F11.23 Opioid dependence with withdrawal (principal); F17.210 Nicotine dependence, cigarettes, uncomplicated; R03.0 Elevated blood-pressure reading, without diagnosis of hypertension; Z91.013 Allergy to seafood; Z91.018 Allergy to other foods
CPT/HCPCS: 36415; 80053; 85027; 86593; 86803; 87389; J0735

== ENCOUNTER 2019-06-03 13:56 | Inpatient (IN) | payer OTHER ==
[2019-06-03 14:56] VITALS: BMI 27.4
--- NOTE | 2019-06-03 16:17 | HP ---
COWS - Scale Resting Pulse: 1= [place] 81-100 Sweatin= Chills/Flushing Restless Observation: 1= Difficult to Sit Still Pupil Size: 0= Normal to Room Light Bone or Joint Aches: 1= Mild Discomfort Runny Nose/ Eye Tearin= Nasal Congestion GI Upset > 30mins: 2= Nausea/Diarrhea Tremor Observation: 4= Gross Tremor/Twitching Yawning Observation: 0= None Anxiety or Irritability: 2=Irritable/Anxious Goose Flesh Skin: 0=Smooth Skin COWS Score: 13 CIWA Score Nausea/Vomitin-Mild Nausea/No Vomiting Muscle Tremors: 3 Anxiety: 4-Mod. Anxious/Guarded Agitation: 2 Paroxysmal Sweats: 2 Orientation: 0-Oriented Tacttile Disturbances: 0-None Auditory Disturbances: 0-None Visual Disturbances: 0-None Headache: 2-Mild CIWA-Ar Total Score: 14 - Admission Criteria OASAS Guidelines: Admission for Medically Managed Detox: Requires at least one of the followin. CIWA greater than 12 2. Seizures within the past 24 hours 3. Delirium tremens within the past 24 hours 4. Hallucinations within the past 24 hours 5. Acute intervention needed for co occurring medical disorder 6. Acute intervention needed for co occurring psychiatric disorder 7. Severe withdrawal that cannot be handled at a lower level of care (continued vomiting, continued diarrhea, abnormal vital signs) requiring intravenous medication and/or fluids 8. Admitting History and Physical - Admission Chief Complaint: Detox from heroin and alcohol History of Present Illness: Pt is a 53 yo M with no PMHx presenting for detox from alcohol and heroine Pt recently here 05/11 for detox from alcohol and heroine went to [facility] for rehab but there were no beds. Never been in a methadone program Pt took ibuprof for headache last night at 1am ETOH Usually drinks 1-1and1/2 pints of vodka, last use 06/02/19 about 2.30pm, drank 2points from 11am to 2am next day. No prior seizures, black out in past, last black out in January after a republican. No hx of falls Started alcohol use at 16 years. Quit after a 2 year program called [facility] [place] [id number] Heroine 2.30am last use, 1/2 a bag, had been using all day prior up to 6 bags, normally uses 4-56 bags nasally. Does not inject, tried injection in past but afraid of needles Started at 40 years old. Was cutting heroine on table and it got into his nails after cutting, ane became sick then he started to use, threw up recovered then continued Fentanyl: Pt thinks heroine was laced [address] Opiates: Nicotine: I pack-2 PPD Would want patch and gum started at 15 years- quit for 1 year, was using nicotine inhaler 2007, left the inhaler program Social hx Homeless, lives with family members Drove [facility] in past quit 2 years ago when he started using drugs No problem with law. Was in [facility], DWI for drugs in cars for 30 days Son, 37 years in touch with son. All: Fish and celery with blotches all over History Source: Patient, Medical Record - Smoking History Smoking history: Current every day smoker Have you smoked in the past 12 months: Yes Aproximately how many cigarettes per day: 20 - Alcohol/Substance Use Hx Alcohol Use: Yes - Social History Usual Living Arrangement: Yes: Other (Homeless, stays with friends and family) Do you think of yourself as: Straight/Heterosexual ADL: Independent History of Recent Travel: No Admission [facility] Allergies/Adverse Reactions: Allergies Allergy/AdvReac Type Severity Reaction Status Date / Time celery Allergy Intermediate Hives Verified 06/03/19 14:47 Fish Containing Products Allergy Intermediate Hives Verified 06/03/19 14:47 No Known Drug Allergies Allergy Verified 06/03/19 14:47 Exam Limitations: No Limitations - Ebola screening Have you traveled outside of the country in the last 21 days: No (N) Have you had contact with anyone from an Ebola affected area: No Do you have a fever: No - Review of Systems Constitutional: No Symptoms Reported EENT: reports: No Symptoms Reported Respiratory: reports: No Symptoms reported Cardiac: reports: No Symptoms Reported GI: reports: No Symptoms Reported : reports: No Symptoms Reported Musculoskeletal: reports: No Symptoms Reported Integumentary: reports: No Symptoms Reported Neuro: reports: Headache, Tremors Endocrine: reports: No Symptoms Reported Hematology: reports: No Symptoms Reported Psychiatric: reports: No Sypmtoms Reported Patient History - Patient Medical History Hx Anemia: No Hx Asthma: No Hx Chronic Obstructive Pulmonary Disease (COPD): No Hx Cancer: No Hx Cardiac Disorders: No Hx Congestive Heart Failure: No Hx Hypertension: No Hx Hypercholesterolemia: No Hx Pacemaker: No HX Cerebrovascular Accident: No Hx Seizures: No Hx Dementia: No Hx Diabetes: No Hx Gastrointestinal Disorders: No Hx Liver Disease: No Hx Genitourinary Disorders: No Hx Sexually Transmitted Disorders: No Hx Renal Disease (ESRD): No Hx Thyroid Disease: No Hx Human Immunodeficiency Virus (HIV): No Hx Hepatitis C: No Hx Depression: No Hx Suicide Attempt: No Hx Bipolar Disorder: No Hx Schizophrenia: No - Patient Surgical History Past Surgical History: No Hx Neurologic Surgery: No Hx Cataract Extraction: No Hx Cardiac Surgery: No Hx Lung Surgery: No Hx Breast Surgery: No Hx Breast Biopsy: No Hx Abdominal Surgery: No Hx Appendectomy: No Hx Cholecystectomy: No Hx Genitourinary Surgery: No Hx Section: No Hx Orthopedic Surgery: No Anesthesia Reaction: No - PPD History Previous Implant?: Yes Documented Results: Positive w/o proof Implanted On Prior [facility] Admission?: Yes - Reproductive History Patient is a Female of Child Bearing Age (11 -55 yrs old): No - Smoking Cessation Smoking history: Current every day smoker Have you smoked in the past 12 months: Yes Aproximately how many cigarettes per day: 20 Hx Chewing Tobacco Use: No Initiated information on smoking cessation: Yes 'Breaking Loose' booklet given: 06/03/19 - Substance & Tx. History Hx Alcohol Use: Yes Hx Substance Use: Yes Substance Use Type: Cocaine (last use 04/11), Heroin, Opiates - Substances abused Alcohol Substance route: Oral Frequency: Daily Amount used: 2 pints of vodka Age of first use: 21 Date of last use: 06/03/19 Heroin Substance route: Inhalation Frequency: Daily Amount used: 6 bags Age of first use: 40 Date of last use: 06/03/19 Admission Physical Exam [facility] - Vital Signs Vital Signs: Vital Signs - 24 hr 06/03/19 14:43 Temperature 98.6 F Pulse Rate 83 Respiratory 22 H Rate Blood Pressure 160/100 - Physical General Appearance: Yes: Tremorous, Anxious HEENTM: Yes: EOMI Respiratory: Yes: Chest Non-Tender, Lungs Clear Neck: Yes: Supple Breast: Yes: Breast Exam Deferred Cardiology: Yes: S1, S2, Tachycardia Abdominal: Yes: Normal Bowel Sounds Genitourinary: Yes: Within Normal Limits Back: Yes: Within Normal Limits Musculoskeletal: Yes: Within Normal Limits Extremities: Yes: Within Normal Limits, Swelling Neurological: Yes: Fully Oriented, Depressed Affect Integumentary: Yes: Within Normal Limits Lymphatic: Yes: Within Normal Limits - Diagnostic (1) Alcohol dependence Current Visit: No Status: Acute Qualifiers: Substance use status: in withdrawal Complication of substance-induced condition: uncomplicated Qualified Code(s): F10.230 - Alcohol dependence with withdrawal, uncomplicated (2) Heroin abuse Current Visit: Yes Status: Acute (3) Fentanyl adverse reaction Current Visit: Yes Status: Acute (4) Opiate abuse, continuous Current Visit: Yes Status: Acute Cleared for Admission [facility] - Detox or Rehab [facility] Level of Care: Medically Supervised Detox Regimen/Protocol: Methadone/Librium Claeared for Rehab Admission: No Screened but not Admitted - Documentation of Visit Screened but not Admitted: No Left Prior to Completion of Assessment: No Insurance Authorization Denied: No Patient Does Not Meet Criteria for Admission: No Breathalyzer - Breathalyzer Breathalyzer: 0 Vital Signs - Vital Signs Vital signs refused: No Temperature: 98.6 F Temperature source: Oral Pulse Rate: 83 Respiratory Rate: 22 Blood Pressure: 160/100 Blood Pressure position: Sitting - Height Height: 1.75 m - Weight Weight: 84.368 kg - BMI Body Mass Index (BMI): 27.4 - Bowel Function Bowel Movement: Yes Urine Drug Screen - Test Device Lot number: [id number] Expiration date: 02/20/21 - Control Is test valid?: Yes - Results Drug screen NEGATIVE: No Urine drug screen results: FEN-Fentanyl, MOP-Opiates Inpatient Rehab Admission - Rehab Decision to Admit Inpatient rehab admission?: No
[2019-06-03] MEDS ORDERED: BISMUTH SUBSALICYLATE 524 MG/30 ML UD PO PRN (16:31)
[2019-06-03] MEDS ORDERED: MENTHOL/PHENOL 1 EACH UD MM PRN (16:31)
[2019-06-03] MEDS ORDERED: MAG HYDROX/AL HYDROX/SIMETH 30 ML UNIT-DOSE CUP PO PRN (16:31)
[2019-06-03] MEDS ORDERED: MAGNESIUM CITRATE 300 ML BOTTLE PO PRN (16:31)
[2019-06-03] MEDS ORDERED: MAGNESIUM HYDROX 2400MG/30ML ORAL SUSPENSION 30 ML CUP PO PRN (16:31)
[2019-06-03] MEDS ORDERED: ACETAMINOPHEN 325 MG TABLET (FP) PO PRN ×2 (16:31)
[2019-06-03] MEDS ORDERED: cloNIDine HCL 0.1 MG TABLET PO PRN (17:25)
[2019-06-03] MEDS: NICOTINE 21 MG/24 HOURS TOPICAL PATCH TD SCH (18:00)
[2019-06-03] MEDS: chlordiazePOXIDE HCL 25 MG CAPSULE PO SCH ×2 (18:00→22:24)
[2019-06-03] MEDS ORDERED: METHADONE HCL 10 MG TABLET (FOR DETOX USE ONLY) PO ONE (18:00)
[2019-06-03] MEDS: hydrOXYzine PAMOATE 25 MG CAPSULE (FP) PO PRN (19:43)
[2019-06-03] MEDS: NICOTINE POLACRILEX 4 MG GUM BUC PRN ×2 (19:44→22:27)
[2019-06-03] MEDS: THIAMINE HCL 100 MG TABLET (FP) PO SCH (22:24)
[2019-06-03] MEDS: METHOCARBAMOL 500 MG TABLET PO PRN (22:24)
[2019-06-03] MEDS: MELATONIN 5 MG TABLETS PO PRN (22:25)
[2019-06-04] MEDS: chlordiazePOXIDE HCL 25 MG CAPSULE PO SCH ×4 (05:37→22:10)
[2019-06-04] MEDS: NICOTINE POLACRILEX 4 MG GUM BUC PRN ×6 (05:40→20:27)
[2019-06-04 09:34] LABS: HEMATOCRIT 40.2 % (35.4-49); HEMOGLOBIN 13.4 GM/dL (11.7-16.9); MCH 28.8 pg (25.7-33.7); MCHC 33.4 g/dl (32.0-35.9); MEAN CELL VOLUME 86.2 fl (80-96); MEAN PLT VOLUME 9.6 fl (7.5-11.1); PLATELET COUNT 167 K/MM3 (134-434); RBC 4.66 M/mm3 (4.00-5.60); RDW 18.8 % (11.9-15.9); WHITE BLOOD COUNT 9.5 K/mm3 (4.0-10.0)
[2019-06-04] MEDS ORDERED: METHADONE HCL 5 MG TABLET (FOR DETOX USE ONLY) PO ONE (10:00)
[2019-06-04 10:01] LABS: ALBUMIN 3.4 g/dl (3.4-5.0); BILIRUBIN,TOTAL 0.8 mg/dL (0.2-1); CALCIUM 8.3 mg/dL (8.5-10.1); POTASSIUM 3.8 mmol/L (3.5-5.1); TOT PROT 6.2 g/dl (6.4-8.2)
[2019-06-04] MEDS: PRENATAL VITAMINS W/ FOLIC ACID TABLET (FP) PO SCH (10:20)
[2019-06-04] MEDS: NICOTINE 21 MG/24 HOURS TOPICAL PATCH TD SCH (10:20)
[2019-06-04] MEDS: chlordiazePOXIDE HCL 25 MG CAPSULE PO PRN (12:58)
--- NOTE | 2019-06-04 13:20 | PN ---
S CIWA - CIWA Score Nausea/Vomitin-Mild Nausea/No Vomiting Muscle Tremors: 3 Anxiety: 4-Mod. Anxious/Guarded Agitation: 2 Paroxysmal Sweats: 1-Minimal Palms Moist Orientation: 0-Oriented Tacttile Disturbances: 1-Very Mild Itch/Numbness Auditory Disturbances: 0-None Visual Disturbances: 0-None Headache: 0-None Present CIWA-Ar Total Score: 12 [facility] COWS - Scale Resting Pulse: 0= [place] 80 or Below Sweatin= Chills/Flushing Restless Observation: 0= Sits Still Pupil Size: 0= Normal to Room Light Bone or Joint Aches: 1= Mild Discomfort Runny Nose/ Eye Tearin= Nasal Congestion GI Upset > 30mins: 1= Stomach Cramp Tremor Observation of Outstretched Hands: 2= Slight Tremor Visible Yawning Observation: 1= 1-2x During Session Anxiety or Irritability: 2=Irritable/Anxious Goose Flesh Skin: 3=Piloerection COWS Score: 12 S Progress Note (SOAP) Subjective: 53 years old male admitted on 06/03/19 for alcohol and opiate withdrawal sx management treated with librium and methadone detox regimen encourage medication assisted treatment program 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 Objective: 06/04/19 13:17 Vital Signs Temperature 97.0 F L 06/04/19 13:13 Pulse Rate 71 06/04/19 13:13 Respiratory Rate 18 06/04/19 13:13 Blood Pressure 111/71 06/04/19 13:13 O2 Sat by Pulse Oximetry (%) Laboratory Last Values WBC 9.5 K/mm3 (4.0-10.0) 06/04/19 07:20 RBC 4.66 M/mm3 (4.00-5.60) 06/04/19 07:20 Hgb 13.4 GM/dL (11.7-16.9) 06/04/19 07:20 Hct 40.2 % (35.4-49) 06/04/19 07:20 MCV 86.2 fl (80-96) 06/04/19 07:20 MCH 28.8 pg (25.7-33.7) 06/04/19 07:20 MCHC 33.4 g/dl (32.0-35.9) 06/04/19 07:20 RDW 18.8 % (11.9-15.9) H 06/04/19 07:20 Plt Count 167 K/MM3 (134-434) 06/04/19 07:20 MPV 9.6 fl (7.5-11.1) 06/04/19 07:20 Sodium 140 mmol/L (136-145) 06/04/19 07:20 Potassium 3.8 mmol/L (3.5-5.1) 06/04/19 07:20 Chloride 104 mmol/L (98-107) 06/04/19 07:20 Carbon Dioxide 33 mmol/L (21-32) H 06/04/19 07:20 Anion Gap 3 MMOL/L (8-16) L 06/04/19 07:20 BUN 9.0 mg/dL (7-18) 06/04/19 07:20 Creatinine 1.0 mg/dL (0.55-1.3) 06/04/19 07:20 Est GFR (CKD-EPI)AfAm 99.15 06/04/19 07:20 Est GFR (CKD-EPI)NonAf 85.55 06/04/19 07:20 Random Glucose 109 mg/dL (74-106) H 06/04/19 07:20 Calcium 8.3 mg/dL (8.5-10.1) L 06/04/19 07:20 Total Bilirubin 0.8 mg/dL (0.2-1) 06/04/19 07:20 AST 9 U/L (15-37) L 06/04/19 07:20 ALT 13 U/L (13-61) 06/04/19 07:20 Alkaline Phosphatase 74 U/L (45-117) 06/04/19 07:20 Total Protein 6.2 g/dl (6.4-8.2) L 06/04/19 07:20 Albumin 3.4 g/dl (3.4-5.0) 06/04/19 07:20 RPR Titer Nonreactive (NONREACTIVE) 06/04/19 07:20 lab noted Assessment: 06/04/19 13:18 alcohol and opiate withdrawal sx Plan: continue librium and methadone detox regimen
[2019-06-04] MEDS: MELATONIN 5 MG TABLETS PO PRN (22:10)
[2019-06-04] MEDS: THIAMINE HCL 100 MG TABLET (FP) PO SCH (22:10)
[2019-06-05] MEDS: chlordiazePOXIDE HCL 25 MG CAPSULE PO PRN (01:38)
[2019-06-05] MEDS: hydrOXYzine PAMOATE 25 MG CAPSULE (FP) PO PRN (01:39)
[2019-06-05] MEDS: chlordiazePOXIDE HCL 25 MG CAPSULE PO SCH ×4 (05:38→22:08)
[2019-06-05] MEDS ORDERED: METHADONE HCL 10 MG TABLET (FOR DETOX USE ONLY) PO ONE (10:00)
[2019-06-05] MEDS ORDERED: LOPERAMIDE HCL 2 MG CAPSULE PO ONE (10:03)
[2019-06-05] MEDS: PRENATAL VITAMINS W/ FOLIC ACID TABLET (FP) PO SCH (10:04)
[2019-06-05] MEDS: NICOTINE POLACRILEX 4 MG GUM BUC PRN ×4 (10:04→21:15)
[2019-06-05] MEDS: NICOTINE 21 MG/24 HOURS TOPICAL PATCH TD SCH (10:04)
--- NOTE | 2019-06-05 10:04 | PN ---
S CIWA - CIWA Score Nausea/Vomitin-Mild Nausea/No Vomiting Muscle Tremors: 2 Anxiety: 2 Agitation: 2 Paroxysmal Sweats: 1-Minimal Palms Moist Orientation: 0-Oriented Tacttile Disturbances: 1-Very Mild Itch/Numbness Auditory Disturbances: 0-None Visual Disturbances: 0-None Headache: 2-Mild CIWA-Ar Total Score: 11 S COWS - Scale Resting Pulse: 0= [place] 80 or Below Sweatin= Chills/Flushing Restless Observation: 0= Sits Still Pupil Size: 0= Normal to Room Light Bone or Joint Aches: 2= Severe Diffuse Aches Runny Nose/ Eye Tearin= Nasal Congestion GI Upset > 30mins: 2= Nausea/Diarrhea Tremor Observation of Outstretched Hands: 2= Slight Tremor Visible Yawning Observation: 1= 1-2x During Session Anxiety or Irritability: 2=Irritable/Anxious Goose Flesh Skin: 0=Smooth Skin COWS Score: 11 [facility] Progress Note (SOAP) Subjective: 53 years old male admitted on 06/03/19 for alcohol and opiate withdrawal sx management treated with librium and methadone detox regimen reported chronic body aches requests higher up the methadone dosage discuss medication assisted treatment program Objective: 06/05/19 10:06 Vital Signs Temperature 97.0 F L 06/05/19 09:15 Pulse Rate 68 06/05/19 09:15 Respiratory Rate 18 06/05/19 09:15 Blood Pressure 149/107 H 06/05/19 09:15 O2 Sat by Pulse Oximetry (%) Laboratory Last Values WBC 9.5 K/mm3 (4.0-10.0) 06/04/19 07:20 RBC 4.66 M/mm3 (4.00-5.60) 06/04/19 07:20 Hgb 13.4 GM/dL (11.7-16.9) 06/04/19 07:20 Hct 40.2 % (35.4-49) 06/04/19 07:20 MCV 86.2 fl (80-96) 06/04/19 07:20 MCH 28.8 pg (25.7-33.7) 06/04/19 07:20 MCHC 33.4 g/dl (32.0-35.9) 06/04/19 07:20 RDW 18.8 % (11.9-15.9) H 06/04/19 07:20 Plt Count 167 K/MM3 (134-434) 06/04/19 07:20 MPV 9.6 fl (7.5-11.1) 06/04/19 07:20 Sodium 140 mmol/L (136-145) 06/04/19 07:20 Potassium 3.8 mmol/L (3.5-5.1) 06/04/19 07:20 Chloride 104 mmol/L (98-107) 06/04/19 07:20 Carbon Dioxide 33 mmol/L (21-32) H 06/04/19 07:20 Anion Gap 3 MMOL/L (8-16) L 06/04/19 07:20 BUN 9.0 mg/dL (7-18) 06/04/19 07:20 Creatinine 1.0 mg/dL (0.55-1.3) 06/04/19 07:20 Est GFR (CKD-EPI)AfAm 99.15 06/04/19 07:20 Est GFR (CKD-EPI)NonAf 85.55 06/04/19 07:20 Random Glucose 109 mg/dL (74-106) H 06/04/19 07:20 Calcium 8.3 mg/dL (8.5-10.1) L 06/04/19 07:20 Total Bilirubin 0.8 mg/dL (0.2-1) 06/04/19 07:20 AST 9 U/L (15-37) L 06/04/19 07:20 ALT 13 U/L (13-61) 06/04/19 07:20 Alkaline Phosphatase 74 U/L (45-117) 06/04/19 07:20 Total Protein 6.2 g/dl (6.4-8.2) L 06/04/19 07:20 Albumin 3.4 g/dl (3.4-5.0) 06/04/19 07:20 RPR Titer Nonreactive (NONREACTIVE) 06/04/19 07:20 lab noted Assessment: 06/05/19 10:07 alcohol and opiate withdrawal sx Plan: continue librium and methadone detox regimen
[2019-06-05] MEDS: THIAMINE HCL 100 MG TABLET (FP) PO SCH (22:08)
[2019-06-05] MEDS: MELATONIN 5 MG TABLETS PO PRN (22:09)
[2019-06-05] MEDS: METHOCARBAMOL 500 MG TABLET PO PRN (22:09)
[2019-06-06] MEDS ORDERED: chlordiazePOXIDE HCL 10 MG CAPSULE PO PRN
[2019-06-06] MEDS: chlordiazePOXIDE HCL 10 MG CAPSULE PO SCH ×4 (05:43→22:08)
[2019-06-06] MEDS: NICOTINE POLACRILEX 4 MG GUM BUC PRN ×6 (05:45→22:10)
[2019-06-06] MEDS ORDERED: METHADONE HCL 5 MG TABLET (FOR DETOX USE ONLY) PO ONE (06:00)
[2019-06-06] MEDS: NICOTINE 21 MG/24 HOURS TOPICAL PATCH TD SCH (09:47)
[2019-06-06] MEDS: PRENATAL VITAMINS W/ FOLIC ACID TABLET (FP) PO SCH (09:47)
--- NOTE | 2019-06-06 12:36 | PN ---
[facility] CIWA - CIWA Score Nausea/Vomitin-Mild Nausea/No Vomiting Muscle Tremors: 1-None Visible, but [place] Anxiety: 2 Agitation: 2 Paroxysmal Sweats: No Perspiration Orientation: 0-Oriented Tacttile Disturbances: 1-Very Mild Itch/Numbness Auditory Disturbances: 0-None Visual Disturbances: 0-None Headache: 1-Very Mild CIWA-Ar Total Score: 8 [facility] COWS - Scale Resting Pulse: 0= [place] 80 or Below Sweatin= No chills or Flushing Restless Observation: 1= Difficult to Sit Still Pupil Size: 1= Pupils >than Normal Bone or Joint Aches: 1= Mild Discomfort Runny Nose/ Eye Tearin= Nasal Congestion GI Upset > 30mins: 1= Stomach Cramp Tremor Observation of Outstretched Hands: 1= Tremor [place], Not Seen Yawning Observation: 1= 1-2x During Session Anxiety or Irritability: 1=Feels Anxious/Irritable Goose Flesh Skin: 0=Smooth Skin COWS Score: 8 [facility] Progress Note (SOAP) Subjective: alert,irritable,anxious,interrupted sleep,pain in the body Objective: 06/06/19 12:33 Vital Signs Temperature 97.8 F 06/06/19 09:04 Pulse Rate 73 06/06/19 09:04 Respiratory Rate 18 06/06/19 09:04 Blood Pressure 115/78 06/06/19 09:04 O2 Sat by Pulse Oximetry (%) Laboratory Last Values WBC 9.5 K/mm3 (4.0-10.0) 06/04/19 07:20 RBC 4.66 M/mm3 (4.00-5.60) 06/04/19 07:20 Hgb 13.4 GM/dL (11.7-16.9) 06/04/19 07:20 Hct 40.2 % (35.4-49) 06/04/19 07:20 MCV 86.2 fl (80-96) 06/04/19 07:20 MCH 28.8 pg (25.7-33.7) 06/04/19 07:20 MCHC 33.4 g/dl (32.0-35.9) 06/04/19 07:20 RDW 18.8 % (11.9-15.9) H 06/04/19 07:20 Plt Count 167 K/MM3 (134-434) 06/04/19 07:20 MPV 9.6 fl (7.5-11.1) 06/04/19 07:20 Sodium 140 mmol/L (136-145) 06/04/19 07:20 Potassium 3.8 mmol/L (3.5-5.1) 06/04/19 07:20 Chloride 104 mmol/L (98-107) 06/04/19 07:20 Carbon Dioxide 33 mmol/L (21-32) H 06/04/19 07:20 Anion Gap 3 MMOL/L (8-16) L 06/04/19 07:20 BUN 9.0 mg/dL (7-18) 06/04/19 07:20 Creatinine 1.0 mg/dL (0.55-1.3) 06/04/19 07:20 Est GFR (CKD-EPI)AfAm 99.15 06/04/19 07:20 Est GFR (CKD-EPI)NonAf 85.55 06/04/19 07:20 Random Glucose 109 mg/dL (74-106) H 06/04/19 07:20 Calcium 8.3 mg/dL (8.5-10.1) L 06/04/19 07:20 Total Bilirubin 0.8 mg/dL (0.2-1) 06/04/19 07:20 AST 9 U/L (15-37) L 06/04/19 07:20 ALT 13 U/L (13-61) 06/04/19 07:20 Alkaline Phosphatase 74 U/L (45-117) 06/04/19 07:20 Total Protein 6.2 g/dl (6.4-8.2) L 06/04/19 07:20 Albumin 3.4 g/dl (3.4-5.0) 06/04/19 07:20 RPR Titer Nonreactive (NONREACTIVE) 06/04/19 07:20 Assessment: 06/06/19 12:35 withdrawal symptom Plan: continue detox methadone and librium regimen
[2019-06-06] MEDS: THIAMINE HCL 100 MG TABLET (FP) PO SCH (22:08)
[2019-06-06] MEDS: MELATONIN 5 MG TABLETS PO PRN (22:08)
[2019-06-06] MEDS: METHOCARBAMOL 500 MG TABLET PO PRN (22:08)
[2019-06-06] MEDS: hydrOXYzine PAMOATE 25 MG CAPSULE (FP) PO PRN (23:05)
[2019-06-07] MEDS: chlordiazePOXIDE HCL 10 MG CAPSULE PO SCH ×2 (06:21→17:24)
[2019-06-07] MEDS: NICOTINE POLACRILEX 4 MG GUM BUC PRN ×5 (09:48→22:06)
[2019-06-07] MEDS: NICOTINE 21 MG/24 HOURS TOPICAL PATCH TD SCH (10:10)
[2019-06-07] MEDS: PRENATAL VITAMINS W/ FOLIC ACID TABLET (FP) PO SCH (10:10)
--- NOTE | 2019-06-07 11:25 | PN ---
[facility] CIWA - CIWA Score Nausea/Vomitin-No Nausea/No Vomiting Muscle Tremors: 1-None Visible, but [place] Anxiety: 1-Mildly Anxious Agitation: 1-Slight > Activity Paroxysmal Sweats: No Perspiration Orientation: 0-Oriented Tacttile Disturbances: 0-None Auditory Disturbances: 0-None Visual Disturbances: 0-None Headache: 1-Very Mild CIWA-Ar Total Score: 4 S COWS - Scale Resting Pulse: 0= [place] 80 or Below Sweatin= No chills or Flushing Restless Observation: 1= Difficult to Sit Still Pupil Size: 0= Normal to Room Light Bone or Joint Aches: 1= Mild Discomfort Runny Nose/ Eye Tearin= None GI Upset > 30mins: 1= Stomach Cramp Tremor Observation of Outstretched Hands: 0= None Yawning Observation: 0= None Anxiety or Irritability: 1=Feels Anxious/Irritable Goose Flesh Skin: 0=Smooth Skin COWS Score: 4 [facility] Progress Note (SOAP) Subjective: alert,irritable,anxious,interrupted sleep Objective: 06/07/19 11:24 Vital Signs Temperature 97.2 F L 06/07/19 09:07 Pulse Rate 69 06/07/19 09:07 Respiratory Rate 18 06/07/19 09:07 Blood Pressure 126/87 06/07/19 09:07 O2 Sat by Pulse Oximetry (%) Assessment: 06/07/19 11:24 withdrawal symptom Plan: continue detox methadone and librium regimen,discharge in am
[2019-06-07] MEDS: IBUPROFEN 400 MG TABLET (FP) PO PRN ×2 (15:17→22:05)
[2019-06-07] MEDS: hydrOXYzine PAMOATE 25 MG CAPSULE (FP) PO PRN (19:34)
[2019-06-07] MEDS: METHOCARBAMOL 500 MG TABLET PO PRN (22:03)
[2019-06-07] MEDS: THIAMINE HCL 100 MG TABLET (FP) PO SCH (22:03)
[2019-06-07] MEDS: MELATONIN 5 MG TABLETS PO PRN (22:04)
[2019-06-07] MEDS ORDERED: MELATONIN 5 MG TABLETS PO ONE (23:14)
[2019-06-08] MEDS: hydrOXYzine PAMOATE 25 MG CAPSULE (FP) PO PRN (00:40)
[2019-06-08] MEDS ORDERED: chlordiazePOXIDE HCL 10 MG CAPSULE PO ONE (05:00)
[2019-06-08 09:04] VITALS: BP 126/77; PULSE 62; TEMP 95.9
[2019-06-08] MEDS: NICOTINE 21 MG/24 HOURS TOPICAL PATCH TD SCH (09:31)
[2019-06-08] MEDS: NICOTINE POLACRILEX 4 MG GUM BUC PRN (09:31)
[2019-06-08] MEDS: PRENATAL VITAMINS W/ FOLIC ACID TABLET (FP) PO SCH (09:31)
--- NOTE | 2019-06-08 14:09 | DS ---
[facility] Detox Discharge Summary Admission Date: 06/03/19 Discharge Date: 06/08/19 - History Present History: Alcohol Dependence, Opioid Dependence Additional Comments: Pt is medically cleared and is discharged today. Pt has completed his detox protocol. Pt is encouraged to follow-up with an outpatient CD program and also to follow-up with his pmd. Pt verbalized understanding. Pt is alert and oriented x3 and in no respiratory distress. Pertinent Past History: H/O alcohol and heroin use disorder. - Physical Exam Results Vital Signs: Vital Signs Temperature 95.9 F L 06/08/19 09:04 Pulse Rate 62 06/08/19 09:04 Respiratory Rate 18 06/08/19 09:04 Blood Pressure 126/77 06/08/19 09:04 O2 Sat by Pulse Oximetry (%) Vital Signs 06/08/19 09:04 Temperature 95.9 F L Pulse Rate 62 Respiratory 18 Rate Blood Pressure 126/77 Laboratory Last Values WBC 9.5 K/mm3 (4.0-10.0) 06/04/19 07:20 RBC 4.66 M/mm3 (4.00-5.60) 06/04/19 07:20 Hgb 13.4 GM/dL (11.7-16.9) 06/04/19 07:20 Hct 40.2 % (35.4-49) 06/04/19 07:20 MCV 86.2 fl (80-96) 06/04/19 07:20 MCH 28.8 pg (25.7-33.7) 06/04/19 07:20 MCHC 33.4 g/dl (32.0-35.9) 06/04/19 07:20 RDW 18.8 % (11.9-15.9) H 06/04/19 07:20 Plt Count 167 K/MM3 (134-434) 06/04/19 07:20 MPV 9.6 fl (7.5-11.1) 06/04/19 07:20 Sodium 140 mmol/L (136-145) 06/04/19 07:20 Potassium 3.8 mmol/L (3.5-5.1) 06/04/19 07:20 Chloride 104 mmol/L (98-107) 06/04/19 07:20 Carbon Dioxide 33 mmol/L (21-32) H 06/04/19 07:20 Anion Gap 3 MMOL/L (8-16) L 06/04/19 07:20 BUN 9.0 mg/dL (7-18) 06/04/19 07:20 Creatinine 1.0 mg/dL (0.55-1.3) 06/04/19 07:20 Est GFR (CKD-EPI)AfAm 99.15 06/04/19 07:20 Est GFR (CKD-EPI)NonAf 85.55 06/04/19 07:20 Random Glucose 109 mg/dL (74-106) H 06/04/19 07:20 Calcium 8.3 mg/dL (8.5-10.1) L 06/04/19 07:20 Total Bilirubin 0.8 mg/dL (0.2-1) 06/04/19 07:20 AST 9 U/L (15-37) L 06/04/19 07:20 ALT 13 U/L (13-61) 06/04/19 07:20 Alkaline Phosphatase 74 U/L (45-117) 06/04/19 07:20 Total Protein 6.2 g/dl (6.4-8.2) L 06/04/19 07:20 Albumin 3.4 g/dl (3.4-5.0) 06/04/19 07:20 RPR Titer Nonreactive (NONREACTIVE) 06/04/19 07:20 Labs noted. Pertinent Admission Physical Exam Findings: Withdrawal symptoms. - Treatment Hospital Course: Detox Protocol Followed, Detoxed Safely, Responded well, Discharged Condition Good - Medication Discharge Medications: Ambulatory Orders Naloxone HCl [Narcan] 4 mg NS ASDIR PRN #1 spray 06/04/19 - Diagnosis (1) Alcohol dependence Status: Acute Qualifiers: Substance use status: in withdrawal Complication of substance-induced condition: uncomplicated Qualified Code(s): F10.230 - Alcohol dependence with withdrawal, uncomplicated (2) Heroin abuse Status: Acute (3) Low back pain Status: Acute (4) Cocaine abuse Status: Chronic - AMA Did Patient Leave Against Medical Advice: No
== END 2019-06-08 09:37 | disposition home or self-care (01) | DRG 773 ==
LOC: YASAS 13:56 → Y3N 17:09
PROVIDERS: ADMIT Allergy & Immunology; ATTEND Allergy & Immunology
PROC: HZ2ZZZZ Detoxification Services for Substance Abuse Treatment (ICD-10-PCS; principal; 2019-06-03)
DX: F11.23 Opioid dependence with withdrawal (principal); F10.230 Alcohol dependence with withdrawal, uncomplicated; F14.10 Cocaine abuse, uncomplicated; F17.210 Nicotine dependence, cigarettes, uncomplicated; M54.5 Low back pain; Z91.013 Allergy to seafood; Z91.018 Allergy to other foods; Z59.0 Homelessness
CPT/HCPCS: 36415; 80053; 85027; 86593; J0735

== ENCOUNTER 2019-07-25 09:28 | Inpatient (IN) | payer OTHER ==
[2019-07-25 10:03] VITALS: BMI 26.9
--- NOTE | 2019-07-25 10:55 | HP ---
COWS - Scale Resting Pulse: 1= [place] 81-100 Sweatin= Chills/Flushing Restless Observation: 1= Difficult to Sit Still Pupil Size: 1= Pupils >than Normal Bone or Joint Aches: 2= Severe Diffuse Aches Runny Nose/ Eye Tearin= None GI Upset > 30mins: 2= Nausea/Diarrhea Tremor Observation: 2= Slight Tremor Visible Yawning Observation: 1= 1-2x During Session Anxiety or Irritability: 1=Feels Anxious/Irritable Goose Flesh Skin: 0=Smooth Skin COWS Score: 12 CIWA Score Nausea/Vomitin Muscle Tremors: 3 Anxiety: 3 Agitation: 3 Paroxysmal Sweats: 1-Minimal Palms Moist Orientation: 1-Uncertain about Date Tacttile Disturbances: 0-None Auditory Disturbances: 0-None Visual Disturbances: 0-None Headache: 1-Very Mild CIWA-Ar Total Score: 15 - Admission Criteria OASAS Guidelines: Admission for Medically Managed Detox: Requires at least one of the followin. CIWA greater than 12 2. Seizures within the past 24 hours 3. Delirium tremens within the past 24 hours 4. Hallucinations within the past 24 hours 5. Acute intervention needed for co occurring medical disorder 6. Acute intervention needed for co occurring psychiatric disorder 7. Severe withdrawal that cannot be handled at a lower level of care (continued vomiting, continued diarrhea, abnormal vital signs) requiring intravenous medication and/or fluids 8. Admitting History and Physical - Admission Chief Complaint: "I want to enter detox because my use is getting work and now I started shooting." History of Present Illness: Pt is a 53 yo M with no PMHx presenting for detox from alcohol and heroin and cocaine. Pt recently here 05/11 for detox from alcohol and heroine went to [facility] for rehab but there were no beds. Never been in a methadone program. ETOH Usually drinks 2 pints of vodka, last use 07/24/2019 about 12:00am. No prior seizures, black out in past, last black out in May. That episode he relates he woke up in the bathroom and didn't know where he was. Heroin 1 bundle of heroin daily, and now progressed to intravenously. He states this all started to spiral after the of his brother. Started at 40 years old. Was cutting heroine on table and it got into his nails after cutting, and became sick then he started to use, threw up recovered then continued. He still does not carry a narcan kit. Cocaine He uses sporadically once a month. Nicotine He smokes 2 PPD for many years since 15 years old. History Source: Patient Limitations to Obtaining History: No Limitations - Past Surgical History Past Surgical History: Yes: None - Advance Directives Advance Directives: No: Living Will, Health Care Proxy, DNR - Smoking History Smoking history: Current every day smoker Have you smoked in the past 12 months: Yes Aproximately how many cigarettes per day: 20 - Alcohol/Substance Use Hx Alcohol Use: Yes (2 pints of vodka daily) History of Substance Use: reports: Cocaine, Heroin - Social History Usual Living Arrangement: Yes: With Parent Do you think of yourself as: Straight/Heterosexual ADL: Independent 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, 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 History of Recent Travel: No Admission ROS [facility] - [facility] Allergies/Adverse Reactions: Allergies Allergy/AdvReac Type Severity Reaction Status Date / Time celery Allergy Intermediate Hives Verified 07/25/19 09:57 Fish Containing Products Allergy Intermediate Hives Verified 07/25/19 09:57 No Known Drug Allergies Allergy Verified 07/25/19 09:57 Exam Limitations: No Limitations - Ebola screening Have you traveled outside of the country in the last 21 days: No Have you had contact with anyone from an Ebola affected area: No Have you been sick,other than usual withdrawal symptoms: No Do you have a fever: No - Review of Systems Constitutional: Chills, Diaphoresis, Unintentional Wgt. Loss EENT: reports: No Symptoms Reported Respiratory: reports: No Symptoms reported Cardiac: reports: No Symptoms Reported GI: reports: Nausea, Abdominal cramping Musculoskeletal: reports: Back Pain, Muscle Pain Integumentary: reports: No Symptoms Reported Neuro: reports: No Symptoms reported Endocrine: reports: No Symptoms Reported Hematology: reports: No Symptoms Reported Psychiatric: reports: Judgement Intact, Orientated x3, Agitated, Anxious Other Systems: Reviewed and Negative Patient History - Patient Medical History Hx Anemia: No Hx Asthma: No Hx Chronic Obstructive Pulmonary Disease (COPD): No Hx Cancer: No Hx Cardiac Disorders: No Hx Congestive Heart Failure: No Hx Hypertension: No Hx Hypercholesterolemia: No Hx Pacemaker: No HX Cerebrovascular Accident: No Hx Seizures: No Hx Dementia: No Hx Diabetes: No Hx Gastrointestinal Disorders: No Hx Liver Disease: No Hx Genitourinary Disorders: No Hx Sexually Transmitted Disorders: No Hx Renal Disease (ESRD): No Hx Thyroid Disease: No Hx Human Immunodeficiency Virus (HIV): No Hx Hepatitis C: No Hx Depression: No Hx Suicide Attempt: No Hx Bipolar Disorder: No Hx Schizophrenia: No - Patient Surgical History Past Surgical History: No Hx Neurologic Surgery: No Hx Cataract Extraction: No Hx Cardiac Surgery: No Hx Lung Surgery: No Hx Breast Surgery: No Hx Breast Biopsy: No Hx Abdominal Surgery: No Hx Appendectomy: No Hx Cholecystectomy: No Hx Genitourinary Surgery: No Hx Section: No Hx Orthopedic Surgery: No Anesthesia Reaction: No - PPD History Previous Implant?: Yes Documented Results: Negative w/proof Implanted On Prior [facility] Admission?: Yes Date: 06/05/19 Results: negative PPD to be Administered?: No - Smoking Cessation Smoking history: Current every day smoker Have you smoked in the past 12 months: Yes Aproximately how many cigarettes per day: 20 Hx Chewing Tobacco Use: No Initiated information on smoking cessation: Yes 'Breaking Loose' booklet given: 07/25/19 - Substances abused Alcohol Substance route: Oral Frequency: Daily Amount used: 2 pints of vodka Age of first use: 21 Date of last use: 07/25/19 Heroin Substance route: Injection Frequency: Daily Amount used: 1 bundle Age of first use: 40 Date of last use: 07/24/19 Cocaine Substance route: Inhalation Frequency: 1-3 times last 30 days Amount used: $30 Age of first use: 18 Date of last use: 07/24/19 Admission Physical Exam S - Vital Signs Vital Signs: Vital Signs - 24 hr 07/25/19 09:55 Temperature 98.0 F Pulse Rate 83 Respiratory 20 Rate Blood Pressure 151/96 - Physical General Appearance: Yes: Mild Distress, Tremorous, Irritable, Sweating, Anxious HEENTM: Yes: EOMI, Hearing grossly Normal, Normal ENT Inspection, Normocephalic , Normal Voice, STEPHANIE, Pharynx Normal, Tm's normal Respiratory: Yes: Chest Non-Tender, Lungs Clear, Normal Breath Sounds, No Respiratory Distress, No Accessory Muscle Use Neck: Yes: No masses,lesions,Nodules, Supple, Trachea in good position Breast: Yes: Within Normal Limits Cardiology: Yes: Regular Rhythm, S1, S2, Tachycardia Abdominal: Yes: Non Tender, Soft, Increased Bowel Sounds, Protuberent Genitourinary: Yes: Within Normal Limits Back: Yes: Within Normal Limits Musculoskeletal: Yes: full range of Motion, Gait Steady, Pelvis Stable Extremities: Yes: Normal Capillary Refill, Normal Inspection, Normal Range of Motion, Non-Tender, Other (track jayla right antecubital fossae) Neurological: Yes: inspector radar and electronics II-XII NML intact, Fully Oriented, Alert, Motor Strength 5/5, Normal Mood/Affect, Normal Response Integumentary: Yes: Normal Color, Warm Lymphatic: Yes: Within Normal Limits - Diagnostic (1) Alcohol dependence with uncomplicated withdrawal Current Visit: Yes Status: Acute (2) Opioid dependence with withdrawal Current Visit: Yes Status: Acute (3) Nicotine dependence Current Visit: Yes Status: Acute (4) Low back pain Current Visit: No Status: Acute (5) Cocaine abuse Current Visit: No Status: Chronic Cleared for Admission [facility] - Detox or Rehab [facility] Level of Care: Medically Managed Detox Regimen/Protocol: Methadone/Librium Claeared for Rehab Admission: No Screened but not Admitted - Documentation of Visit Screened but not Admitted: No Breathalyzer - Breathalyzer Breathalyzer: 0 Urine Drug Screen - Test Device Lot number: [id number] Expiration date: 02/20/21 - Control Is test valid?: Yes - Results Drug screen NEGATIVE: No Urine drug screen results: VANESSA-Cocaine, FEN-Fentanyl, MOP-Opiates Inpatient Rehab Admission - Rehab Decision to Admit Inpatient rehab admission?: No
[2019-07-25] MEDS ORDERED: BISMUTH SUBSALICYLATE 524 MG/30 ML UD PO PRN (11:05)
[2019-07-25] MEDS ORDERED: METHADONE HCL 10 MG TABLET (FOR DETOX USE ONLY) PO ONE (11:05)
[2019-07-25] MEDS ORDERED: MENTHOL/PHENOL 1 EACH UD MM PRN (11:05)
[2019-07-25] MEDS ORDERED: chlordiazePOXIDE HCL 25 MG CAPSULE PO PRN (11:05)
[2019-07-25] MEDS ORDERED: cloNIDine HCL 0.1 MG TABLET PO PRN (11:05)
[2019-07-25] MEDS ORDERED: ACETAMINOPHEN 325 MG TABLET (FP) PO PRN ×2 (11:05)
[2019-07-25] MEDS ORDERED: MAGNESIUM HYDROX 2400MG/30ML ORAL SUSPENSION 30 ML CUP PO PRN (11:05)
[2019-07-25] MEDS ORDERED: hydrOXYzine PAMOATE 25 MG CAPSULE (FP) PO PRN (11:05)
[2019-07-25] MEDS ORDERED: MAG HYDROX/AL HYDROX/SIMETH 30 ML UNIT-DOSE CUP PO PRN (11:05)
[2019-07-25] MEDS ORDERED: IBUPROFEN 400 MG TABLET (FP) PO PRN (11:05)
[2019-07-25] MEDS ORDERED: METHOCARBAMOL 500 MG TABLET PO PRN (11:05)
[2019-07-25] MEDS ORDERED: MAGNESIUM CITRATE 300 ML BOTTLE PO PRN (11:05)
[2019-07-25] MEDS: chlordiazePOXIDE HCL 25 MG CAPSULE PO SCH ×3 (11:51→22:38)
[2019-07-25] MEDS: NICOTINE POLACRILEX 2 MG GUM BUC PRN ×5 (12:28→22:40)
[2019-07-25 15:05] LABS: HEMATOCRIT 39.9 % (35.4-49); HEMOGLOBIN 13.2 GM/dL (11.7-16.9); MCH 28.9 pg (25.7-33.7); MEAN CELL VOLUME 87.7 fl (80-96); MEAN PLT VOLUME 9.1 fl (7.5-11.1); PLATELET COUNT 217 K/MM3 (134-434); RBC 4.55 M/mm3 (4.00-5.60); RDW 17.4 % (11.9-15.9); WHITE BLOOD COUNT 13.8 K/mm3 (4.0-10.0)
[2019-07-25 15:16] LABS: ALBUMIN 4.2 g/dl (3.4-5.0); BILIRUBIN,TOTAL 0.6 mg/dL (0.2-1); BLOOD UREA NITROGEN 14.8 mg/dL (7-18); POTASSIUM 3.5 mmol/L (3.5-5.1); TOT PROT 7.3 g/dl (6.4-8.2)
[2019-07-25] MEDS ORDERED: THIAMINE HCL 100 MG TABLET (FP) PO SCH (22:00)
[2019-07-25] MEDS ORDERED: MELATONIN 5 MG TABLETS PO PRN (22:00)
[2019-07-26] MEDS: chlordiazePOXIDE HCL 25 MG CAPSULE PO SCH ×2 (06:39→10:13)
[2019-07-26] MEDS ORDERED: METHADONE HCL 10 MG TABLET (FOR DETOX USE ONLY) ONE (09:23)
[2019-07-26] MEDS ORDERED: METHADONE HCL 5 MG TABLET (FOR DETOX USE ONLY) ONE (09:24)
[2019-07-26] MEDS ORDERED: METHADONE (DETOX) 20 MG, METHADONE (DETOX) 5 MG PO ONE (10:00)
[2019-07-26] MEDS ORDERED: LIDOCAINE 5% TOPICAL PATCH TP SCH (10:00)
[2019-07-26] MEDS ORDERED: PRENATAL VITAMINS W/ FOLIC ACID TABLET (FP) PO SCH (10:00)
[2019-07-26] MEDS ORDERED: NICOTINE 14 MG/24 HOURS TOPICAL PATCH TD SCH (10:00)
[2019-07-26] MEDS: NICOTINE POLACRILEX 2 MG GUM BUC PRN (10:16)
--- NOTE | 2019-07-26 11:37 | PN ---
S CIWA - CIWA Score Nausea/Vomitin Muscle Tremors: 2 Anxiety: 1-Mildly Anxious Agitation: 1-Slight > Activity Paroxysmal Sweats: 1-Minimal Palms Moist Orientation: 0-Oriented Tacttile Disturbances: 2-Mild Itch/Numbness/Burn Auditory Disturbances: 0-None Visual Disturbances: 0-None Headache: 0-None Present CIWA-Ar Total Score: 10 BHS COWS - Scale Resting Pulse: 0= [place] 80 or Below Sweatin=Flushed/Facial Moisture Restless Observation: 1= Difficult to Sit Still Pupil Size: 1= Pupils >than Normal Bone or Joint Aches: 2= Severe Diffuse Aches Runny Nose/ Eye Tearin= None GI Upset > 30mins: 2= Nausea/Diarrhea Tremor Observation of Outstretched Hands: 2= Slight Tremor Visible Yawning Observation: 0= None Anxiety or Irritability: 1=Feels Anxious/Irritable Goose Flesh Skin: 0=Smooth Skin COWS Score: 11 S Progress Note (SOAP) Subjective: interrupted sleep, sweats, shakes , nausea, vomiting , lbp Objective: 07/26/19 11:36 Vital Signs Temperature 97.7 F 07/26/19 09:10 Pulse Rate 71 07/26/19 09:10 Respiratory Rate 20 07/26/19 09:10 Blood Pressure 103/69 07/26/19 09:10 O2 Sat by Pulse Oximetry (%) Laboratory Tests 07/25/19 07/25/19 07/25/19 11:20 11:20 11:20 WBC 13.8 H RBC 4.55 Hgb 13.2 Hct 39.9 MCV 87.7 MCH 28.9 MCHC 33.0 RDW 17.4 H Plt Count 217 D MPV 9.1 Sodium 140 Potassium 3.5 Chloride 104 Carbon Dioxide 31 Anion Gap 5 L BUN 14.8 Creatinine 1.0 Est GFR (CKD-EPI)AfAm 99.15 Est GFR (CKD-EPI)NonAf 85.55 Random Glucose 117 H Calcium 9.0 Total Bilirubin 0.6 AST 9 L ALT 17 Alkaline Phosphatase 94 Total Protein 7.3 Albumin 4.2 RPR Titer Nonreactive pt aox3 lying in bed with back discomfort Assessment: 07/26/19 11:37 withdrawal sx's elevated wbc #13.8 Plan: cont. detox increase fluids repeat wbc # lidocaine patch zofran prn
[2019-07-26] MEDS ORDERED: ONDANSETRON *ODT* 4 MG TABLET SL PRN (11:38)
[2019-07-26 13:36] VITALS: BP 121/84; PULSE 76; TEMP 98.5
[2019-07-26] MEDS ORDERED: LIDOCAINE PATCH REMOVAL MC SCH (22:00)
[2019-07-27] MEDS ORDERED: chlordiazePOXIDE HCL 25 MG CAPSULE PO SCH (05:00)
[2019-07-27] MEDS ORDERED: METHADONE HCL 10 MG TABLET (FOR DETOX USE ONLY) PO ONE (10:00)
[2019-07-28] MEDS ORDERED: chlordiazePOXIDE HCL 10 MG CAPSULE PO PRN
[2019-07-28] MEDS ORDERED: chlordiazePOXIDE HCL 10 MG CAPSULE PO SCH (05:00)
[2019-07-28] MEDS ORDERED: METHADONE (DETOX) 10 MG, METHADONE (DETOX) 5 MG PO ONE (10:00)
[2019-07-29] MEDS ORDERED: chlordiazePOXIDE HCL 10 MG CAPSULE PO SCH (05:00)
[2019-07-29] MEDS ORDERED: METHADONE HCL 10 MG TABLET (FOR DETOX USE ONLY) PO ONE (10:00)
[2019-07-30] MEDS ORDERED: chlordiazePOXIDE HCL 10 MG CAPSULE PO ONE (05:00)
[2019-07-30] MEDS ORDERED: METHADONE HCL 5 MG TABLET (FOR DETOX USE ONLY) PO ONE (06:00)
== END 2019-07-26 13:58 | disposition left against medical advice (07) | DRG 770 ==
LOC: YASAS 09:28 → Y3N 11:13
PROVIDERS: ADMIT Allergy & Immunology; ATTEND Allergy & Immunology
PROC: HZ2ZZZZ Detoxification Services for Substance Abuse Treatment (ICD-10-PCS; principal; 2019-07-25)
DX: F11.23 Opioid dependence with withdrawal (principal); F10.230 Alcohol dependence with withdrawal, uncomplicated; F14.10 Cocaine abuse, uncomplicated; F17.210 Nicotine dependence, cigarettes, uncomplicated; D72.829 Elevated white blood cell count, unspecified; R00.0 Tachycardia, unspecified; M54.5 Low back pain; Z91.013 Allergy to seafood; Z91.018 Allergy to other foods
CPT/HCPCS: 36415; 80053; 85027; 86593

== ENCOUNTER 2019-08-19 11:16 | Inpatient (IN) | payer OTHER ==
--- NOTE | 2019-08-19 11:45 | HP ---
COWS - Scale Resting Pulse: 1= [place] 81-100 Sweatin= Chills/Flushing Restless Observation: 1= Difficult to Sit Still Pupil Size: 1= Pupils >than Normal Bone or Joint Aches: 1= Mild Discomfort Runny Nose/ Eye Tearin= Nasal Congestion GI Upset > 30mins: 1= Stomach Cramp Tremor Observation: 2= Slight Tremor Visible Yawning Observation: 0= None Anxiety or Irritability: 1=Feels Anxious/Irritable Goose Flesh Skin: 3=Piloerection COWS Score: 13 CIWA Score Nausea/Vomitin-Mild Nausea/No Vomiting Muscle Tremors: 3 Anxiety: 1-Mildly Anxious Agitation: 0-Normal Activity Paroxysmal Sweats: 2 Orientation: 1-Uncertain about Date Tacttile Disturbances: 1-Very Mild Itch/Numbness Auditory Disturbances: 0-None Visual Disturbances: 0-None Headache: 3-Moderate CIWA-Ar Total Score: 12 - Admission Criteria OASAS Guidelines: Admission for Medically Managed Detox: Requires at least one of the followin. CIWA greater than 12 2. Seizures within the past 24 hours 3. Delirium tremens within the past 24 hours 4. Hallucinations within the past 24 hours 5. Acute intervention needed for co occurring medical disorder 6. Acute intervention needed for co occurring psychiatric disorder 7. Severe withdrawal that cannot be handled at a lower level of care (continued vomiting, continued diarrhea, abnormal vital signs) requiring intravenous medication and/or fluids 8. Admitting History and Physical - Admission Chief Complaint: " I want to recuperate from alcohol and heroin. For myself and for my mom who is worried about me." History of Present Illness: 53 year old male with alcohold and heroin dependence with withdrawals. He is drinking 1.5-2 pints daily and last drank 9:30 Pm 08/18/2019. + blackout 1 week ago but no seizure on withdrawals. He is using heroin intravenously which he just started. He hasn't had an overdose last used this am 2AM. PMH: NOn ePsurg: Hemorrhoid surgery Psych: None History Source: Patient Limitations to Obtaining History: No Limitations - Past Surgical History Past Surgical History: Yes: None - Advance Directives Advance Directives: No: Living Will, Health Care Proxy, DNR - Smoking History Smoking history: Current every day smoker Have you smoked in the past 12 months: Yes Aproximately how many cigarettes per day: 20 - Alcohol/Substance Use Hx Alcohol Use: Yes (2 pints of vodka daily) History of Substance Use: reports: Cocaine, Heroin - Social History Usual Living Arrangement: Yes: With Parent Do you think of yourself as: Straight/Heterosexual ADL: Independent 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, 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 History of Recent Travel: No Admission ROS S - HPI Allergies/Adverse Reactions: Allergies Allergy/AdvReac Type Severity Reaction Status Date / Time celery Allergy Intermediate Hives Verified 07/25/19 09:57 Fish Containing Products Allergy Intermediate Hives Verified 07/25/19 09:57 No Known Drug Allergies Allergy Verified 07/25/19 09:57 Exam Limitations: No Limitations - Ebola screening Have you traveled outside of the country in the last 21 days: No Have you had contact with anyone from an Ebola affected area: No Have you been sick,other than usual withdrawal symptoms: No Do you have a fever: No - Review of Systems Constitutional: Chills EENT: reports: No Symptoms Reported Respiratory: reports: No Symptoms reported Cardiac: reports: No Symptoms Reported GI: reports: No Symptoms Reported : reports: No Symptoms Reported Musculoskeletal: reports: No Symptoms Reported Integumentary: reports: No Symptoms Reported Neuro: reports: No Symptoms reported Endocrine: reports: No Symptoms Reported Hematology: reports: No Symptoms Reported Psychiatric: reports: Judgement Intact, Mood/Affect Appropiate, Orientated x3 Other Systems: Reviewed and Negative Patient History - Patient Medical History Hx Anemia: No Hx Asthma: No Hx Chronic Obstructive Pulmonary Disease (COPD): No Hx Cancer: No Hx Cardiac Disorders: No Hx Congestive Heart Failure: No Hx Hypertension: No Hx Hypercholesterolemia: No Hx Pacemaker: No HX Cerebrovascular Accident: No Hx Seizures: No Hx Dementia: No Hx Diabetes: No Hx Gastrointestinal Disorders: No Hx Liver Disease: No Hx Genitourinary Disorders: No Hx Sexually Transmitted Disorders: No Hx Renal Disease (ESRD): No Hx Thyroid Disease: No Hx Human Immunodeficiency Virus (HIV): No Hx Hepatitis C: No Hx Depression: No Hx Suicide Attempt: No Hx Bipolar Disorder: No Hx Schizophrenia: No - Patient Surgical History Past Surgical History: No Hx Neurologic Surgery: No Hx Cataract Extraction: No Hx Cardiac Surgery: No Hx Lung Surgery: No Hx Breast Surgery: No Hx Breast Biopsy: No Hx Abdominal Surgery: No Hx Appendectomy: No Hx Cholecystectomy: No Hx Genitourinary Surgery: No Hx Section: No Hx Orthopedic Surgery: No Anesthesia Reaction: No - PPD History Previous Implant?: Yes Documented Results: Negative w/proof Implanted On Prior [facility] Admission?: Yes Date: 06/05/19 Results: negative PPD to be Administered?: No - Smoking Cessation Smoking history: Current every day smoker Have you smoked in the past 12 months: Yes Aproximately how many cigarettes per day: 20 Hx Chewing Tobacco Use: No Initiated information on smoking cessation: Yes 'Breaking Loose' booklet given: 08/19/19 - Substances abused Alcohol Substance route: Oral Frequency: Daily Amount used: 1.5-2 pints vodka daily Age of first use: 13 Date of last use: 08/18/19 Heroin Substance route: Injection Frequency: Daily Amount used: 6 bags Age of first use: 40 Date of last use: 08/19/19 Admission Physical Exam [facility] - Physical General Appearance: Yes: No Apparent Distress, Nourished, Appropriately Dressed HEENTM: Yes: EOMI, Hearing grossly Normal, Normal ENT Inspection, Normocephalic , Normal Voice, STEPHANIE, Pharynx Normal, Tm's normal Respiratory: Yes: Chest Non-Tender, Lungs Clear, Normal Breath Sounds, No Respiratory Distress, No Accessory Muscle Use Neck: Yes: No masses,lesions,Nodules, Supple, Trachea in good position Breast: Yes: Breast Exam Deferred Cardiology: Yes: Regular Rhythm, S1, S2, Tachycardia Abdominal: Yes: Normal Bowel Sounds, Non Tender, Flat, Soft Genitourinary: Yes: Within Normal Limits Back: Yes: Normal Inspection Musculoskeletal: Yes: full range of Motion, Gait Steady, Pelvis Stable Extremities: Yes: Normal Capillary Refill, Normal Inspection, Other (trace edema pedal) Neurological: Yes: compensation consultant II-XII NML intact, Fully Oriented, Alert, Motor Strength 5/5, Normal Mood/Affect, Normal Response Integumentary: Yes: Normal Color, Warm Lymphatic: Yes: Within Normal Limits - Diagnostic (1) Alcohol dependence with uncomplicated withdrawal Current Visit: Yes Status: Acute (2) Heroin abuse Current Visit: Yes Status: Acute (3) Nicotine dependence Current Visit: Yes Status: Acute (4) Opioid dependence with withdrawal Current Visit: Yes Status: Acute Cleared for Admission [facility] - Detox or Rehab [facility] Level of Care: Medically Managed Detox Regimen/Protocol: Methadone/Librium Claeared for Rehab Admission: No Screened but not Admitted - Documentation of Visit Screened but not Admitted: No Breathalyzer - Breathalyzer Breathalyzer: 0 ( last used yesterday) Urine Drug Screen - Test Device Lot number: [id number] Expiration date: 02/20/21 - Control Is test valid?: Yes - Results Drug screen NEGATIVE: No Urine drug screen results: VANESSA-Cocaine, FEN-Fentanyl, MOP-Opiates Inpatient Rehab Admission - Rehab Decision to Admit Inpatient rehab admission?: No
[2019-08-19] MEDS ORDERED: IBUPROFEN 400 MG TABLET (FP) PO PRN (11:50)
[2019-08-19] MEDS ORDERED: MENTHOL/PHENOL 1 EACH UD MM PRN (11:50)
[2019-08-19] MEDS ORDERED: hydrOXYzine PAMOATE 25 MG CAPSULE (FP) PO PRN (11:50)
[2019-08-19] MEDS ORDERED: MAG HYDROX/AL HYDROX/SIMETH 30 ML UNIT-DOSE CUP PO PRN (11:50)
[2019-08-19] MEDS ORDERED: METHOCARBAMOL 500 MG TABLET PO PRN (11:50)
[2019-08-19] MEDS ORDERED: MAGNESIUM HYDROX 2400MG/30ML ORAL SUSPENSION 30 ML CUP PO PRN (11:50)
[2019-08-19] MEDS ORDERED: ACETAMINOPHEN 325 MG TABLET (FP) PO PRN ×2 (11:50)
[2019-08-19] MEDS ORDERED: MAGNESIUM CITRATE 300 ML BOTTLE PO PRN (11:50)
[2019-08-19] MEDS ORDERED: BISMUTH SUBSALICYLATE 524 MG/30 ML UD PO PRN (11:50)
[2019-08-19 13:01] VITALS: BMI 26.6
[2019-08-19] MEDS ORDERED: METHADONE HCL 10 MG TABLET (FOR DETOX USE ONLY) PO ONE (14:00)
[2019-08-19] MEDS ORDERED: NICOTINE 14 MG/24 HOURS TOPICAL PATCH TD SCH (14:00)
[2019-08-19] MEDS: chlordiazePOXIDE HCL 25 MG CAPSULE PO SCH ×3 (14:12→22:11)
[2019-08-19 16:58] LABS: HEMATOCRIT 39.2 % (35.4-49); HEMOGLOBIN 12.9 GM/dL (11.7-16.9); MEAN PLT VOLUME 9.7 fl (7.5-11.1); PLATELET COUNT 202 K/MM3 (134-434); RBC 4.46 M/mm3 (4.00-5.60); RDW 16.2 % (11.9-15.9); WHITE BLOOD COUNT 12.4 K/mm3 (4.0-10.0)
[2019-08-19 17:09] LABS: BILIRUBIN,TOTAL 0.8 mg/dL (0.2-1); BLOOD UREA NITROGEN 13.6 mg/dL (7-18); CALCIUM 8.9 mg/dL (8.5-10.1); CREATININE 1.1 mg/dL (0.55-1.3); POTASSIUM 3.7 mmol/L (3.5-5.1); TOT PROT 7.4 g/dl (6.4-8.2)
[2019-08-19] MEDS ORDERED: NICOTINE POLACRILEX 2 MG GUM BUC PRN (17:32)
[2019-08-19] MEDS: NICOTINE POLACRILEX 4 MG GUM BUC PRN ×2 (19:25→22:13)
[2019-08-19] MEDS: THIAMINE HCL 100 MG TABLET (FP) PO SCH (22:11)
[2019-08-19] MEDS: MELATONIN 5 MG TABLETS PO PRN (22:13)
[2019-08-20] MEDS: chlordiazePOXIDE HCL 25 MG CAPSULE PO SCH ×4 (06:07→22:05)
[2019-08-20] MEDS: NICOTINE POLACRILEX 4 MG GUM BUC PRN ×4 (08:44→22:08)
[2019-08-20] MEDS ORDERED: METHADONE HCL 5 MG TABLET (FOR DETOX USE ONLY) ONE (09:20)
[2019-08-20] MEDS ORDERED: METHADONE HCL 10 MG TABLET (FOR DETOX USE ONLY) ONE (09:21)
[2019-08-20] MEDS ORDERED: METHADONE (DETOX) 20 MG, METHADONE (DETOX) 5 MG PO ONE (10:00)
[2019-08-20] MEDS ORDERED: NICOTINE 21 MG/24 HOURS TOPICAL PATCH TD SCH (10:00)
[2019-08-20] MEDS ORDERED: NICOTINE 14 MG/24 HOURS TOPICAL PATCH TD PRN (10:00)
[2019-08-20] MEDS: PRENATAL VITAMINS W/ FOLIC ACID TABLET (FP) PO SCH (10:35)
[2019-08-20] MEDS: NICOTINE 21 MG/24 HOURS TOPICAL PATCH TD SCH (10:35)
--- NOTE | 2019-08-20 11:41 | PN ---
[facility] CIWA - CIWA Score Nausea/Vomitin-No Nausea/No Vomiting Muscle Tremors: 3 Anxiety: 3 Agitation: 2 Paroxysmal Sweats: 2 Orientation: 0-Oriented Tacttile Disturbances: 0-None Auditory Disturbances: 0-None Visual Disturbances: 0-None Headache: 0-None Present CIWA-Ar Total Score: 10 BHS COWS - Scale Resting Pulse: 0= [place] 80 or Below Sweatin= Chills/Flushing Restless Observation: 1= Difficult to Sit Still Pupil Size: 0= Normal to Room Light Bone or Joint Aches: 2= Severe Diffuse Aches Runny Nose/ Eye Tearin= Nasal Congestion GI Upset > 30mins: 0= None Tremor Observation of Outstretched Hands: 1= Tremor [place], Not Seen Yawning Observation: 1= 1-2x During Session Anxiety or Irritability: 2=Irritable/Anxious Goose Flesh Skin: 0=Smooth Skin COWS Score: 9 S Progress Note (SOAP) Subjective: irritable agitation body aches interrupted sleep sweats Objective: 08/20/19 11:40 Vital Signs Temperature 97.8 F 08/20/19 09:13 Pulse Rate 78 08/20/19 09:13 Respiratory Rate 18 08/20/19 09:13 Blood Pressure 104/81 08/20/19 09:13 O2 Sat by Pulse Oximetry (%) Laboratory Tests 08/19/19 08/19/19 08/19/19 12:00 12:00 12:00 WBC 12.4 H RBC 4.46 Hgb 12.9 Hct 39.2 MCV 88.0 MCH 29.0 MCHC 33.0 RDW 16.2 H Plt Count 202 MPV 9.7 Sodium 139 Potassium 3.7 Chloride 104 Carbon Dioxide 29 Anion Gap 6 L BUN 13.6 Creatinine 1.1 Est GFR (CKD-EPI)AfAm 88.36 Est GFR (CKD-EPI)NonAf 76.24 Random Glucose 115 H Calcium 8.9 Total Bilirubin 0.8 AST 11 L ALT 16 Alkaline Phosphatase 88 Total Protein 7.4 Albumin 4.0 RPR Titer Nonreactive aaox3 lying in bed no acute distress Assessment: 08/20/19 11:40 withdrawals Plan: continue detox increase fluids
[2019-08-20] MEDS: chlordiazePOXIDE HCL 25 MG CAPSULE PO PRN (18:32)
[2019-08-20] MEDS: cloNIDine HCL 0.1 MG TABLET PO PRN (18:32)
[2019-08-20] MEDS: THIAMINE HCL 100 MG TABLET (FP) PO SCH (22:05)
[2019-08-20] MEDS: MELATONIN 5 MG TABLETS PO PRN (22:06)
[2019-08-21] MEDS: chlordiazePOXIDE HCL 25 MG CAPSULE PO SCH ×4 (05:52→22:05)
[2019-08-21] MEDS: NICOTINE POLACRILEX 4 MG GUM BUC PRN ×6 (05:53→22:07)
[2019-08-21] MEDS ORDERED: METHADONE HCL 10 MG TABLET (FOR DETOX USE ONLY) PO ONE (10:00)
[2019-08-21] MEDS: PRENATAL VITAMINS W/ FOLIC ACID TABLET (FP) PO SCH (10:17)
[2019-08-21] MEDS: NICOTINE 21 MG/24 HOURS TOPICAL PATCH TD SCH (10:17)
--- NOTE | 2019-08-21 10:35 | PN ---
[facility] CIWA - CIWA Score Nausea/Vomitin-No Nausea/No Vomiting Muscle Tremors: 3 Anxiety: 2 Agitation: 2 Paroxysmal Sweats: 2 Orientation: 0-Oriented Tacttile Disturbances: 0-None Auditory Disturbances: 0-None Visual Disturbances: 0-None Headache: 0-None Present CIWA-Ar Total Score: 9 BHS COWS - Scale Resting Pulse: 0= [place] 80 or Below Sweatin= Chills/Flushing Restless Observation: 1= Difficult to Sit Still Pupil Size: 0= Normal to Room Light Bone or Joint Aches: 2= Severe Diffuse Aches Runny Nose/ Eye Tearin= None GI Upset > 30mins: 0= None Tremor Observation of Outstretched Hands: 1= Tremor [place], Not Seen Yawning Observation: 1= 1-2x During Session Anxiety or Irritability: 1=Feels Anxious/Irritable Goose Flesh Skin: 0=Smooth Skin COWS Score: 7 S Progress Note (SOAP) Subjective: sweats shakes interrupted sleep body aches Objective: 08/21/19 10:35 Vital Signs Temperature 97.3 F L 08/21/19 09:36 Pulse Rate 63 08/21/19 09:36 Respiratory Rate 18 08/21/19 09:36 Blood Pressure 112/65 08/21/19 09:36 O2 Sat by Pulse Oximetry (%) Laboratory Tests 08/19/19 08/19/19 08/19/19 12:00 12:00 12:00 WBC 12.4 H RBC 4.46 Hgb 12.9 Hct 39.2 MCV 88.0 MCH 29.0 MCHC 33.0 RDW 16.2 H Plt Count 202 MPV 9.7 Sodium 139 Potassium 3.7 Chloride 104 Carbon Dioxide 29 Anion Gap 6 L BUN 13.6 Creatinine 1.1 Est GFR (CKD-EPI)AfAm 88.36 Est GFR (CKD-EPI)NonAf 76.24 Random Glucose 115 H Calcium 8.9 Total Bilirubin 0.8 AST 11 L ALT 16 Alkaline Phosphatase 88 Total Protein 7.4 Albumin 4.0 RPR Titer Nonreactive aaox3 ambulating no acute distress Assessment: 08/21/19 10:35 withdrawals Plan: continue detox motrin/roboxin prn increase fluids
[2019-08-21] MEDS: chlordiazePOXIDE HCL 25 MG CAPSULE PO PRN (15:29)
[2019-08-21] MEDS: MELATONIN 5 MG TABLETS PO PRN (22:05)
[2019-08-21] MEDS: cloNIDine HCL 0.1 MG TABLET PO PRN (22:05)
[2019-08-21] MEDS: THIAMINE HCL 100 MG TABLET (FP) PO SCH (22:05)
[2019-08-22] MEDS ORDERED: chlordiazePOXIDE HCL 10 MG CAPSULE PO PRN
[2019-08-22] MEDS: chlordiazePOXIDE HCL 10 MG CAPSULE PO SCH ×4 (06:52→22:03)
[2019-08-22] MEDS ORDERED: METHADONE (DETOX) 10 MG, METHADONE (DETOX) 5 MG PO ONE (10:00)
[2019-08-22] MEDS: PRENATAL VITAMINS W/ FOLIC ACID TABLET (FP) PO SCH (10:23)
[2019-08-22] MEDS: NICOTINE 21 MG/24 HOURS TOPICAL PATCH TD SCH (10:24)
[2019-08-22] MEDS ORDERED: METHADONE HCL 5 MG TABLET (FOR DETOX USE ONLY) ONE (10:25)
[2019-08-22] MEDS ORDERED: METHADONE HCL 10 MG TABLET (FOR DETOX USE ONLY) ONE (10:25)
--- NOTE | 2019-08-22 11:06 | PN ---
S CIWA - CIWA Score Nausea/Vomitin-No Nausea/No Vomiting Muscle Tremors: 2 Anxiety: 2 Agitation: 2 Paroxysmal Sweats: No Perspiration Orientation: 0-Oriented Tacttile Disturbances: 0-None Auditory Disturbances: 0-None Visual Disturbances: 0-None Headache: 0-None Present CIWA-Ar Total Score: 6 BHS COWS - Scale Resting Pulse: 0= [place] 80 or Below Sweatin= Chills/Flushing Restless Observation: 0= Sits Still Pupil Size: 0= Normal to Room Light Bone or Joint Aches: 1= Mild Discomfort Runny Nose/ Eye Tearin= Nasal Congestion GI Upset > 30mins: 0= None Tremor Observation of Outstretched Hands: 1= Tremor [place], Not Seen Yawning Observation: 1= 1-2x During Session Anxiety or Irritability: 1=Feels Anxious/Irritable Goose Flesh Skin: 0=Smooth Skin COWS Score: 6 BHS Progress Note (SOAP) Subjective: anxiety sweats mild shakes i have a bump to back of my right ear Objective: 08/22/19 11:06 Vital Signs Temperature 98.4 F 08/22/19 09:25 Pulse Rate 73 08/22/19 09:25 Respiratory Rate 16 08/22/19 09:25 Blood Pressure 100/62 08/22/19 09:25 O2 Sat by Pulse Oximetry (%) Laboratory Tests 08/19/19 08/19/19 08/19/19 12:00 12:00 12:00 WBC 12.4 H RBC 4.46 Hgb 12.9 Hct 39.2 MCV 88.0 MCH 29.0 MCHC 33.0 RDW 16.2 H Plt Count 202 MPV 9.7 Sodium 139 Potassium 3.7 Chloride 104 Carbon Dioxide 29 Anion Gap 6 L BUN 13.6 Creatinine 1.1 Est GFR (CKD-EPI)AfAm 88.36 Est GFR (CKD-EPI)NonAf 76.24 Random Glucose 115 H Calcium 8.9 Total Bilirubin 0.8 AST 11 L ALT 16 Alkaline Phosphatase 88 Total Protein 7.4 Albumin 4.0 RPR Titer Nonreactive aaox3 ambulating no acute distress Assessment: 08/22/19 11:06 withdrawals noted back of ear assessed; semi-hard small nodules noted, maybe a cyst. pt states has had this for a while now. pt denies of any pain at this time. pt was advised to ask for motrin, apply warm compress prn if he experiences any pain/discomfort. pt advised to see his PCP for evaluation/follow up to further treatment. pt in agreement. Plan: continue detox
[2019-08-22] MEDS: NICOTINE POLACRILEX 4 MG GUM BUC PRN ×4 (11:59→22:04)
[2019-08-22] MEDS: MELATONIN 5 MG TABLETS PO PRN (22:03)
[2019-08-22] MEDS: THIAMINE HCL 100 MG TABLET (FP) PO SCH (22:03)
[2019-08-23] MEDS: chlordiazePOXIDE HCL 10 MG CAPSULE PO SCH ×2 (05:20→17:14)
[2019-08-23] MEDS: NICOTINE POLACRILEX 4 MG GUM BUC PRN ×3 (05:22→20:15)
[2019-08-23] MEDS ORDERED: METHADONE HCL 10 MG TABLET (FOR DETOX USE ONLY) PO ONE (10:00)
[2019-08-23] MEDS: NICOTINE 21 MG/24 HOURS TOPICAL PATCH TD SCH (10:59)
[2019-08-23] MEDS: PRENATAL VITAMINS W/ FOLIC ACID TABLET (FP) PO SCH (10:59)
--- NOTE | 2019-08-23 11:32 | PN ---
[facility] CIWA - CIWA Score Nausea/Vomitin-No Nausea/No Vomiting Muscle Tremors: 2 Anxiety: 1-Mildly Anxious Agitation: 1-Slight > Activity Paroxysmal Sweats: No Perspiration Orientation: 0-Oriented Tacttile Disturbances: 0-None Auditory Disturbances: 0-None Visual Disturbances: 0-None Headache: 0-None Present CIWA-Ar Total Score: 4 BHS COWS - Scale Resting Pulse: 0= [place] 80 or Below Sweatin= Chills/Flushing Restless Observation: 0= Sits Still Pupil Size: 0= Normal to Room Light Bone or Joint Aches: 0= None Runny Nose/ Eye Tearin= None GI Upset > 30mins: 0= None Tremor Observation of Outstretched Hands: 1= Tremor [place], Not Seen Yawning Observation: 1= 1-2x During Session Anxiety or Irritability: 1=Feels Anxious/Irritable Goose Flesh Skin: 0=Smooth Skin COWS Score: 4 [facility] Progress Note (SOAP) Subjective: anxiety Objective: 08/23/19 11:31 Vital Signs Temperature 98.1 F 08/23/19 09:51 Pulse Rate 73 08/23/19 09:51 Respiratory Rate 17 08/23/19 09:51 Blood Pressure 132/69 08/23/19 09:51 O2 Sat by Pulse Oximetry (%) aaox3 ambulating no acute distress Assessment: 08/23/19 11:32 mild withdrawal sx Plan: d/c in am
[2019-08-23] MEDS: MELATONIN 5 MG TABLETS PO PRN (21:47)
[2019-08-23] MEDS: THIAMINE HCL 100 MG TABLET (FP) PO SCH (21:47)
[2019-08-24] MEDS ORDERED: chlordiazePOXIDE HCL 10 MG CAPSULE PO ONE (05:00)
[2019-08-24] MEDS ORDERED: METHADONE HCL 5 MG TABLET (FOR DETOX USE ONLY) PO ONE (06:00)
[2019-08-24] MEDS: NICOTINE POLACRILEX 4 MG GUM BUC PRN (06:12)
[2019-08-24 07:03] VITALS: BP 115/69; PULSE 66; TEMP 97.5
--- NOTE | 2019-08-24 13:00 | DS ---
[facility] Detox Discharge Summary Admission Date: 08/19/19 Discharge Date: 08/24/19 - History Present History: Alcohol Dependence, Opioid Dependence Additional Comments: Pt is a 53 y/o male admitted to detox for heroin/alcohol detox and protocol completed today. Pertinent Past History: Low Back Pain - Physical Exam Results Vital Signs: Vital Signs Temperature 97.5 F L 08/24/19 07:02 Pulse Rate 66 08/24/19 07:02 Respiratory Rate 18 08/24/19 07:02 Blood Pressure 115/69 08/24/19 07:02 O2 Sat by Pulse Oximetry (%) Alert o x 3,denies s/h/i nad oob ambulating with steady gait. Pertinent Admission Physical Exam Findings: Laboratory Tests 08/19/19 08/19/19 08/19/19 12:00 12:00 12:00 WBC 12.4 H RBC 4.46 Hgb 12.9 Hct 39.2 MCV 88.0 MCH 29.0 MCHC 33.0 RDW 16.2 H Plt Count 202 MPV 9.7 Sodium 139 Potassium 3.7 Chloride 104 Carbon Dioxide 29 Anion Gap 6 L BUN 13.6 Creatinine 1.1 Est GFR (CKD-EPI)AfAm 88.36 Est GFR (CKD-EPI)NonAf 76.24 Random Glucose 115 H Calcium 8.9 Total Bilirubin 0.8 AST 11 L ALT 16 Alkaline Phosphatase 88 Total Protein 7.4 Albumin 4.0 RPR Titer Nonreactive - Treatment Hospital Course: Detox Protocol Followed, Detoxed Safely, Responded well, Discharged Condition Good, Rehab Referral Accepted (Pt referred to [facility] bed available.) Patient has Accepted a Rehab Referral to: Pt reports he is going to an [facility] on [address] [place] today. - Medication Discharge Medications: Ambulatory Orders NK [No Known Home Medication] 08/19/19 - Diagnosis (1) Alcohol dependence with uncomplicated withdrawal Current Visit: Yes Status: Acute (2) Nicotine dependence Current Visit: Yes Status: Acute Qualifiers: Nicotine product type: cigarettes Substance use status: in withdrawal Qualified Code(s): F17.213 - Nicotine dependence, cigarettes, with withdrawal (3) Opioid dependence with withdrawal Current Visit: Yes Status: Acute - AMA Did Patient Leave Against Medical Advice: No
== END 2019-08-24 09:30 | disposition home or self-care (01) | DRG 773 ==
LOC: YASAS 11:16 → Y6N 13:04
PROVIDERS: ADMIT Allergy & Immunology; ATTEND Allergy & Immunology
PROC: HZ2ZZZZ Detoxification Services for Substance Abuse Treatment (ICD-10-PCS; principal; 2019-08-19)
DX: F11.23 Opioid dependence with withdrawal (principal); F10.230 Alcohol dependence with withdrawal, uncomplicated; F17.210 Nicotine dependence, cigarettes, uncomplicated; H61.899 Other specified disorders of external ear, unspecified ear; R00.0 Tachycardia, unspecified; Z91.013 Allergy to seafood; Z91.018 Allergy to other foods
CPT/HCPCS: 36415; 80053; 85027; 86593; J0735

== ENCOUNTER 2019-09-18 10:17 | Inpatient (IN) | payer OTHER ==
--- NOTE | 2019-09-18 10:34 | BHS.RME ---
Substance Use & Tx History - Substance Use History Alcohol Substance amount: 1.5-2 pints vodka Frequency of use: Daily Substance route: Oral Date of Last Use: 09/18/19 (2:30am) Opiates (Heroin) Substance amount: 6 bags Frequency of use: Daily Substance route: Injection (ex: intravenous or skin popping) Date of Last Use: 09/18/19 (5 am) Physical/Psych/Mental Status - Behavior General Behavior: Increased activity (restlessness, agitation) Eye Contact: Normal - Cooperativeness Cooperativeness: Cooperative - Thinking Thought Processes: Tight, Logical, Goal Directed Thought content: Future oriented - Physical Health Problems Is patient presently having any pain?: No Does patient presently have any injuries (include location): No Does patient currently have a fever: No Is patient : No COWS - Scale Resting Pulse: 0= [place] 80 or Below Sweatin= Beads of Sweat on Face Restless Observation: 1= Difficult to Sit Still Pupil Size: 0= Normal to Room Light Bone or Joint Aches: 4=Acute Joint/Muscle Pain Runny Nose/ Eye Tearin= Runny Nose/Eyes GI Upset > 30mins: 2= Nausea/Diarrhea Tremor Observation: 1= Tremor [place], Not Seen Yawning Observation: 1= 1-2x During Session Anxiety or Irritability: 1=Feels Anxious/Irritable Goose Flesh Skin: 3=Piloerection COWS Score: 18 CIWA Nausea/Vomitin-Mild Nausea/No Vomiting Muscle Tremors: 1-None Visible, but [place] Anxiety: 3 Agitation: 3 Paroxysmal Sweats: 4-Forehead w/Sweat Beads Orientation: 3-Disoriented Date>2 days Tacttile Disturbances: 1-Very Mild Itch/Numbness Auditory Disturbances: 0-None Visual Disturbances: 0-None Headache: 1-Very Mild CIWA-Ar Total Score: 17
--- NOTE | 2019-09-18 11:56 | HP ---
COWS - Scale Resting Pulse: 0= [place] 80 or Below Sweatin= Beads of Sweat on Face Restless Observation: 1= Difficult to Sit Still Pupil Size: 0= Normal to Room Light Bone or Joint Aches: 4=Acute Joint/Muscle Pain Runny Nose/ Eye Tearin= Runny Nose/Eyes GI Upset > 30mins: 2= Nausea/Diarrhea Tremor Observation: 1= Tremor [place], Not Seen Yawning Observation: 1= 1-2x During Session Anxiety or Irritability: 1=Feels Anxious/Irritable Goose Flesh Skin: 3=Piloerection COWS Score: 18 CIWA Score Nausea/Vomitin-Mild Nausea/No Vomiting Muscle Tremors: 1-None Visible, but [place] Anxiety: 3 Agitation: 3 Paroxysmal Sweats: 4-Forehead w/Sweat Beads Orientation: 3-Disoriented Date>2 days Tacttile Disturbances: 1-Very Mild Itch/Numbness Auditory Disturbances: 0-None Visual Disturbances: 0-None Headache: 1-Very Mild CIWA-Ar Total Score: 17 - Admission Criteria [facility] Guidelines: Admission for Medically Managed Detox: Requires at least one of the followin. CIWA greater than 12 2. Seizures within the past 24 hours 3. Delirium tremens within the past 24 hours 4. Hallucinations within the past 24 hours 5. Acute intervention needed for co occurring medical disorder 6. Acute intervention needed for co occurring psychiatric disorder 7. Severe withdrawal that cannot be handled at a lower level of care (continued vomiting, continued diarrhea, abnormal vital signs) requiring intravenous medication and/or fluids 8. Admitting History and Physical - Admission Chief Complaint: Mr. Husain is a 53 yo gentleman who states he would "like to complete detox and rehab for my heroin, alcohol and cocaine use. History of Present Illness: Mr. Husain is a 53 yo gentleman who states he would "like to complete detox and rehab for my heroin, alcohol and cocaine use. He as last seen in [facility] between August 19 and Aug 24. He completed detox. No rehab beds were available. He relapsed immediately upon discharge. PMH: noncontributory PSH: hemorrhoids Psych: none Substance use hx Alcohol: 1.5-2 pints Vodka daily, first use age 13y, last use today at 2:30 am. Blackout 2 days ago. No hx of seizures Heroin: 6 bags per day, IV, first use age 40y, last use at 5 am today. OD one year ago. cocaine: $50. 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 History of Recent Travel: No Admission ROS [facility] Allergies/Adverse Reactions: Allergies Allergy/AdvReac Type Severity Reaction Status Date / Time celery Allergy Intermediate Hives Verified 08/19/19 12:48 Fish Containing Products Allergy Intermediate Hives Verified 08/19/19 12:48 No Known Drug Allergies Allergy Verified 08/19/19 12:48 Exam Limitations: No Limitations - Ebola screening Have you traveled outside of the country in the last 21 days: No Have you had contact with anyone from an Ebola affected area: No Have you been sick,other than usual withdrawal symptoms: No Do you have a fever: No - Review of Systems Constitutional: Unintentional Wgt. Loss (10 lbs lost over past few mos) EENT: reports: Nose Congestion Respiratory: reports: No Symptoms reported Cardiac: reports: No Symptoms Reported GI: reports: Nausea : reports: No Symptoms Reported Musculoskeletal: reports: Joint Pain, Other (leg swelling, saw , attributed to walking day and night without rest, rec: elevation) Integumentary: reports: No Symptoms Reported Neuro: reports: Headache Endocrine: reports: No Symptoms Reported Hematology: reports: No Symptoms Reported Psychiatric: reports: No Sypmtoms Reported Patient History - Patient Medical History Hx Anemia: No Hx Asthma: No Hx Chronic Obstructive Pulmonary Disease (COPD): No Hx Cancer: No Hx Cardiac Disorders: No Hx Congestive Heart Failure: No Hx Hypertension: No Hx Hypercholesterolemia: No Hx Pacemaker: No HX Cerebrovascular Accident: No Hx Seizures: No Hx Dementia: No Hx Diabetes: No Hx Gastrointestinal Disorders: No Hx Liver Disease: No Hx Genitourinary Disorders: No Hx Sexually Transmitted Disorders: No Hx Renal Disease (ESRD): No Hx Thyroid Disease: No Hx Human Immunodeficiency Virus (HIV): No Hx Hepatitis C: No Hx Depression: No Hx Suicide Attempt: No Hx Bipolar Disorder: No Hx Schizophrenia: No - Patient Surgical History Past Surgical History: No Hx Neurologic Surgery: No Hx Cataract Extraction: No Hx Cardiac Surgery: No Hx Lung Surgery: No Hx Breast Surgery: No Hx Breast Biopsy: No Hx Abdominal Surgery: No Hx Appendectomy: No Hx Cholecystectomy: No Hx Genitourinary Surgery: No Hx Section: No Hx Orthopedic Surgery: No Other Surgical History: Pt had a hemmorhoidectomy Anesthesia Reaction: No - PPD History Date: 03/14/19 Results: TB QFT neg - Smoking Cessation Smoking history: Current every day smoker Have you smoked in the past 12 months: Yes Aproximately how many cigarettes per day: 30 Hx Chewing Tobacco Use: No Initiated information on smoking cessation: Yes 'Breaking Loose' booklet given: 09/18/19 Admission Physical Exam [facility] - Physical General Appearance: Yes: Intoxicated HEENTM: Yes: Hearing grossly Normal, Normocephalic, Normal Voice Respiratory: Yes: Lungs Clear, Normal Breath Sounds Neck: Yes: Within Normal Limits Breast: Yes: Breast Exam Deferred Cardiology: Yes: Regular Rate, S1, S2 Abdominal: Yes: Normal Bowel Sounds, Non Tender, Soft, Protuberent Genitourinary: Yes: Other (deferred) Back: Yes: Normal Inspection Musculoskeletal: Yes: Within Normal Limits Extremities: Yes: Swelling (pitting edema bilateral legs to mid leg), Erythema Neurological: Yes: Alert Integumentary: Yes: Track [place] (no signs of infection) - Diagnostic (1) Alcohol dependence with uncomplicated withdrawal Current Visit: Yes Status: Acute (2) Low back pain Current Visit: No Status: Chronic (3) Nicotine dependence Current Visit: Yes Status: Chronic Qualifiers: Nicotine product type: cigarettes Substance use status: in withdrawal Qualified Code(s): F17.213 - Nicotine dependence, cigarettes, with withdrawal (4) Opiate abuse, continuous Current Visit: Yes Status: Acute Cleared for Admission [facility] - Detox or Rehab [facility] Level of Care: Medically Managed Detox Regimen/Protocol: Methadone/Librium Breathalyzer - Breathalyzer Breathalyzer: 0 Urine Drug Screen - Test Device Lot number: [id number] Expiration date: 02/20/21 - Control Is test valid?: Yes - Results Drug screen NEGATIVE: No Urine drug screen results: FEN-Fentanyl, MOP-Opiates, MTD-Methadone, BZO- Benzodiazepines Inpatient Rehab Admission - Rehab Decision to Admit Inpatient rehab admission?: No
[2019-09-18] MEDS ORDERED: METHOCARBAMOL 500 MG TABLET PO PRN (12:02)
[2019-09-18] MEDS ORDERED: hydrOXYzine PAMOATE 25 MG CAPSULE (FP) PO PRN (12:02)
[2019-09-18] MEDS ORDERED: MENTHOL/PHENOL 1 EACH UD MM PRN (12:02)
[2019-09-18] MEDS ORDERED: BISMUTH SUBSALICYLATE 524 MG/30 ML UD PO PRN (12:02)
[2019-09-18] MEDS ORDERED: MAGNESIUM CITRATE 300 ML BOTTLE PO PRN (12:02)
[2019-09-18] MEDS ORDERED: MAG HYDROX/AL HYDROX/SIMETH 30 ML UNIT-DOSE CUP PO PRN (12:02)
[2019-09-18] MEDS ORDERED: ACETAMINOPHEN 325 MG TABLET (FP) PO PRN ×2 (12:02)
[2019-09-18] MEDS ORDERED: cloNIDine HCL 0.1 MG TABLET PO PRN (12:02)
[2019-09-18] MEDS ORDERED: MAGNESIUM HYDROX 2400MG/30ML ORAL SUSPENSION 30 ML CUP PO PRN (12:02)
[2019-09-18] MEDS ORDERED: chlordiazePOXIDE HCL 25 MG CAPSULE PO PRN (12:02)
[2019-09-18 12:17] VITALS: BMI 27.3
[2019-09-18] MEDS ORDERED: METHADONE HCL 10 MG TABLET (FOR DETOX USE ONLY) PO ONE (13:05)
[2019-09-18] MEDS: NICOTINE 21 MG/24 HOURS TOPICAL PATCH TD SCH (13:30)
[2019-09-18] MEDS: NICOTINE POLACRILEX 4 MG GUM BUC PRN ×4 (13:30→22:44)
[2019-09-18 15:05] LABS: HEMATOCRIT 34.9 % (35.4-49); HEMOGLOBIN 11.7 GM/dL (11.7-16.9); MCH 29.1 pg (25.7-33.7); MCHC 33.6 g/dl (32.0-35.9); MEAN CELL VOLUME 86.6 fl (80-96); MEAN PLT VOLUME 9.8 fl (7.5-11.1); PLATELET COUNT 187 K/MM3 (134-434); RBC 4.02 M/mm3 (4.00-5.60); RDW 15.4 % (11.9-15.9); WHITE BLOOD COUNT 10.8 K/mm3 (4.0-10.0)
[2019-09-18 15:08] LABS: ALBUMIN 3.6 g/dl (3.4-5.0); BILIRUBIN,TOTAL 0.8 mg/dL (0.2-1); BLOOD UREA NITROGEN 15.3 mg/dL (7-18); CALCIUM 8.8 mg/dL (8.5-10.1); CREATININE 0.9 mg/dL (0.55-1.3)
[2019-09-18] MEDS: chlordiazePOXIDE HCL 25 MG CAPSULE PO SCH ×2 (17:47→22:43)
[2019-09-18] MEDS: IBUPROFEN 400 MG TABLET (FP) PO PRN (20:32)
[2019-09-18] MEDS: THIAMINE HCL 100 MG TABLET (FP) PO SCH (22:43)
[2019-09-18] MEDS: MELATONIN 5 MG TABLETS PO PRN (22:43)
[2019-09-19] MEDS: chlordiazePOXIDE HCL 25 MG CAPSULE PO SCH ×4 (05:59→22:20)
[2019-09-19] MEDS: NICOTINE POLACRILEX 4 MG GUM BUC PRN ×6 (06:00→22:22)
[2019-09-19] MEDS ORDERED: METHADONE HCL 10 MG TABLET (FOR DETOX USE ONLY) ONE (09:02)
[2019-09-19] MEDS ORDERED: METHADONE HCL 5 MG TABLET (FOR DETOX USE ONLY) ONE (09:02)
[2019-09-19] MEDS ORDERED: METHADONE (DETOX) 20 MG, METHADONE (DETOX) 5 MG PO ONE (10:00)
[2019-09-19] MEDS: NICOTINE 21 MG/24 HOURS TOPICAL PATCH TD SCH (10:37)
[2019-09-19] MEDS: PRENATAL VITAMINS W/ FOLIC ACID TABLET (FP) PO SCH (10:38)
--- NOTE | 2019-09-19 11:39 | PN ---
S CIWA - CIWA Score Nausea/Vomitin-Mild Nausea/No Vomiting Muscle Tremors: 3 Anxiety: 3 Agitation: 1-Slight > Activity Paroxysmal Sweats: 2 Orientation: 0-Oriented Tacttile Disturbances: 0-None Auditory Disturbances: 0-None Visual Disturbances: 2-Mild Sensitivity Headache: 2-Mild CIWA-Ar Total Score: 14 BHS COWS - Scale Resting Pulse: 1= [place] 81-100 Sweatin= Chills/Flushing Restless Observation: 0= Sits Still Pupil Size: 1= Pupils >than Normal Bone or Joint Aches: 2= Severe Diffuse Aches Runny Nose/ Eye Tearin= None GI Upset > 30mins: 2= Nausea/Diarrhea Tremor Observation of Outstretched Hands: 2= Slight Tremor Visible Yawning Observation: 0= None Anxiety or Irritability: 2=Irritable/Anxious Goose Flesh Skin: 3=Piloerection COWS Score: 14 S Progress Note (SOAP) Subjective: 53 years old male admitted on 09/18/19 for alcohol and opiate withdrawal sx management treating with librium and methadone detox regiment tremor restlessness trouble sleep at night Objective: 09/19/19 11:41 Vital Signs Temperature 98.9 F 09/19/19 09:58 Pulse Rate 82 09/19/19 09:58 Respiratory Rate 18 09/19/19 09:58 Blood Pressure 114/84 09/19/19 09:58 O2 Sat by Pulse Oximetry (%) Laboratory Last Values WBC 10.8 K/mm3 (4.0-10.0) H 09/18/19 12:15 RBC 4.02 M/mm3 (4.00-5.60) 09/18/19 12:15 Hgb 11.7 GM/dL (11.7-16.9) 09/18/19 12:15 Hct 34.9 % (35.4-49) L 09/18/19 12:15 MCV 86.6 fl (80-96) 09/18/19 12:15 MCH 29.1 pg (25.7-33.7) 09/18/19 12:15 MCHC 33.6 g/dl (32.0-35.9) 09/18/19 12:15 RDW 15.4 % (11.9-15.9) 09/18/19 12:15 Plt Count 187 K/MM3 (134-434) 09/18/19 12:15 MPV 9.8 fl (7.5-11.1) 09/18/19 12:15 Sodium 136 mmol/L (136-145) 09/18/19 12:15 Potassium 4.0 mmol/L (3.5-5.1) 09/18/19 12:15 Chloride 99 mmol/L (98-107) 09/18/19 12:15 Carbon Dioxide 31 mmol/L (21-32) 09/18/19 12:15 Anion Gap 6 MMOL/L (8-16) L 09/18/19 12:15 BUN 15.3 mg/dL (7-18) 09/18/19 12:15 Creatinine 0.9 mg/dL (0.55-1.3) 09/18/19 12:15 Est GFR (CKD-EPI)AfAm 112.62 09/18/19 12:15 Est GFR (CKD-EPI)NonAf 97.17 09/18/19 12:15 Random Glucose 126 mg/dL (74-106) H 09/18/19 12:15 Calcium 8.8 mg/dL (8.5-10.1) 09/18/19 12:15 Total Bilirubin 0.8 mg/dL (0.2-1) 09/18/19 12:15 AST 24 U/L (15-37) 09/18/19 12:15 ALT 27 U/L (13-61) 09/18/19 12:15 Alkaline Phosphatase 80 U/L (45-117) 09/18/19 12:15 Total Protein 7.0 g/dl (6.4-8.2) 09/18/19 12:15 Albumin 3.6 g/dl (3.4-5.0) 09/18/19 12:15 RPR Titer Nonreactive (NONREACTIVE) 09/18/19 12:15 HIV 1&2 Antibody Screen Negative 09/18/19 12:15 HIV P24 Antigen Negative 09/18/19 12:15 lab noted Assessment: 09/19/19 11:41 alcohol and opiate withdrawal Plan: librium and methadone regiment
[2019-09-19] MEDS ORDERED: NICOTINE 14 MG/24 HOURS TOPICAL PATCH TD ONE (18:15)
[2019-09-19] MEDS: THIAMINE HCL 100 MG TABLET (FP) PO SCH (22:20)
[2019-09-20] MEDS: MELATONIN 5 MG TABLETS PO PRN ×2 (00:12→22:10)
[2019-09-20] MEDS: chlordiazePOXIDE HCL 25 MG CAPSULE PO SCH ×4 (05:13→22:10)
[2019-09-20] MEDS: NICOTINE POLACRILEX 4 MG GUM BUC PRN ×5 (05:15→17:22)
[2019-09-20] MEDS ORDERED: METHADONE HCL 10 MG TABLET (FOR DETOX USE ONLY) PO ONE (10:00)
[2019-09-20] MEDS: PRENATAL VITAMINS W/ FOLIC ACID TABLET (FP) PO SCH (10:59)
[2019-09-20] MEDS: NICOTINE 21 MG/24 HOURS TOPICAL PATCH TD SCH (11:00)
[2019-09-20] MEDS: IBUPROFEN 400 MG TABLET (FP) PO PRN (12:20)
--- NOTE | 2019-09-20 13:48 | PN ---
[facility] CIWA - CIWA Score Nausea/Vomitin-No Nausea/No Vomiting Muscle Tremors: 3 Anxiety: 1-Mildly Anxious Agitation: 0-Normal Activity Paroxysmal Sweats: 2 Orientation: 3-Disoriented Date>2 days Tacttile Disturbances: 0-None Auditory Disturbances: 2-Mild Harshness/Frighten Visual Disturbances: 0-None Headache: 0-None Present CIWA-Ar Total Score: 11 S COWS - Scale Resting Pulse: 0= [place] 80 or Below Sweatin=Flushed/Facial Moisture Restless Observation: 0= Sits Still Pupil Size: 0= Normal to Room Light Bone or Joint Aches: 2= Severe Diffuse Aches Runny Nose/ Eye Tearin= None GI Upset > 30mins: 0= None Tremor Observation of Outstretched Hands: 2= Slight Tremor Visible Yawning Observation: 0= None Anxiety or Irritability: 0= None Goose Flesh Skin: 0=Smooth Skin COWS Score: 6 S Progress Note (SOAP) Subjective: Complaints of body aches Objective: 09/20/19 13:47 Laboratory Tests 09/18/19 09/18/19 09/18/19 12:15 12:15 12:15 WBC 10.8 H RBC 4.02 Hgb 11.7 Hct 34.9 L MCV 86.6 MCH 29.1 MCHC 33.6 RDW 15.4 Plt Count 187 MPV 9.8 Sodium 136 Potassium 4.0 Chloride 99 Carbon Dioxide 31 Anion Gap 6 L BUN 15.3 Creatinine 0.9 Est GFR (CKD-EPI)AfAm 112.62 Est GFR (CKD-EPI)NonAf 97.17 Random Glucose 126 H Calcium 8.8 Total Bilirubin 0.8 AST 24 ALT 27 Alkaline Phosphatase 80 Total Protein 7.0 Albumin 3.6 RPR Titer Nonreactive HIV 1&2 Antibody Screen HIV P24 Antigen 09/18/19 12:15 WBC RBC Hgb Hct MCV MCH MCHC RDW Plt Count MPV Sodium Potassium Chloride Carbon Dioxide Anion Gap BUN Creatinine Est GFR (CKD-EPI)AfAm Est GFR (CKD-EPI)NonAf Random Glucose Calcium Total Bilirubin AST ALT Alkaline Phosphatase Total Protein Albumin RPR Titer HIV 1&2 Antibody Screen Negative HIV P24 Antigen Negative Vital Signs Temperature 96.8 F L 09/20/19 08:34 Pulse Rate 69 09/20/19 08:34 Respiratory Rate 18 09/20/19 08:34 Blood Pressure 100/68 09/20/19 08:34 O2 Sat by Pulse Oximetry (%) PE Gnl: WDWN, in mild distress Mental status: awake, alert, follows complex commands Motor: moves limbs symmetrically Assessment: 09/20/19 13:48 1. Alcohol use disorder 2. Opioid use disorder Plan: 1. continue Librium withdrawal protocol 2. continue methadone withdrawal protocol
[2019-09-20] MEDS: THIAMINE HCL 100 MG TABLET (FP) PO SCH (22:10)
[2019-09-21] MEDS ORDERED: chlordiazePOXIDE HCL 10 MG CAPSULE PO PRN
[2019-09-21] MEDS: chlordiazePOXIDE HCL 10 MG CAPSULE PO SCH ×4 (06:14→22:25)
[2019-09-21] MEDS: NICOTINE POLACRILEX 4 MG GUM BUC PRN ×5 (09:00→20:02)
[2019-09-21] MEDS ORDERED: METHADONE HCL 5 MG TABLET (FOR DETOX USE ONLY) ONE (09:22)
[2019-09-21] MEDS ORDERED: METHADONE HCL 10 MG TABLET (FOR DETOX USE ONLY) ONE (09:22)
[2019-09-21] MEDS ORDERED: METHADONE (DETOX) 10 MG, METHADONE (DETOX) 5 MG PO ONE (10:00)
[2019-09-21] MEDS: PRENATAL VITAMINS W/ FOLIC ACID TABLET (FP) PO SCH (10:30)
[2019-09-21] MEDS: NICOTINE 21 MG/24 HOURS TOPICAL PATCH TD SCH (10:30)
--- NOTE | 2019-09-21 12:19 | PN ---
S CIWA - CIWA Score Nausea/Vomitin-No Nausea/No Vomiting Muscle Tremors: None Anxiety: 2 Agitation: 2 Paroxysmal Sweats: 3 Orientation: 0-Oriented Tacttile Disturbances: 0-None Auditory Disturbances: 0-None Visual Disturbances: 0-None Headache: 1-Very Mild CIWA-Ar Total Score: 8 S COWS - Scale Resting Pulse: 0= [place] 80 or Below Sweatin= Chills/Flushing Restless Observation: 1= Difficult to Sit Still Pupil Size: 0= Normal to Room Light Bone or Joint Aches: 2= Severe Diffuse Aches Runny Nose/ Eye Tearin= None GI Upset > 30mins: 0= None Tremor Observation of Outstretched Hands: 0= None Yawning Observation: 1= 1-2x During Session Anxiety or Irritability: 2=Irritable/Anxious Goose Flesh Skin: 0=Smooth Skin COWS Score: 7 S Progress Note (SOAP) Subjective: c/o anxiety, irritability, muscle aches, headache, and sweats. Objective: 09/21/19 12:18 Vital Signs 09/21/19 09/21/19 09/21/19 06:35 07:20 08:41 Temperature 98.3 F 98.2 F Pulse Rate 67 67 Respiratory 20 20 18 Rate Blood Pressure 105/72 128/86 Laboratory Last Values WBC 10.8 K/mm3 (4.0-10.0) H 09/18/19 12:15 RBC 4.02 M/mm3 (4.00-5.60) 09/18/19 12:15 Hgb 11.7 GM/dL (11.7-16.9) 09/18/19 12:15 Hct 34.9 % (35.4-49) L 09/18/19 12:15 MCV 86.6 fl (80-96) 09/18/19 12:15 MCH 29.1 pg (25.7-33.7) 09/18/19 12:15 MCHC 33.6 g/dl (32.0-35.9) 09/18/19 12:15 RDW 15.4 % (11.9-15.9) 09/18/19 12:15 Plt Count 187 K/MM3 (134-434) 09/18/19 12:15 MPV 9.8 fl (7.5-11.1) 09/18/19 12:15 Sodium 136 mmol/L (136-145) 09/18/19 12:15 Potassium 4.0 mmol/L (3.5-5.1) 09/18/19 12:15 Chloride 99 mmol/L (98-107) 09/18/19 12:15 Carbon Dioxide 31 mmol/L (21-32) 09/18/19 12:15 Anion Gap 6 MMOL/L (8-16) L 09/18/19 12:15 BUN 15.3 mg/dL (7-18) 09/18/19 12:15 Creatinine 0.9 mg/dL (0.55-1.3) 09/18/19 12:15 Est GFR (CKD-EPI)AfAm 112.62 09/18/19 12:15 Est GFR (CKD-EPI)NonAf 97.17 09/18/19 12:15 Random Glucose 126 mg/dL (74-106) H 09/18/19 12:15 Calcium 8.8 mg/dL (8.5-10.1) 09/18/19 12:15 Total Bilirubin 0.8 mg/dL (0.2-1) 09/18/19 12:15 AST 24 U/L (15-37) 09/18/19 12:15 ALT 27 U/L (13-61) 09/18/19 12:15 Alkaline Phosphatase 80 U/L (45-117) 09/18/19 12:15 Total Protein 7.0 g/dl (6.4-8.2) 09/18/19 12:15 Albumin 3.6 g/dl (3.4-5.0) 09/18/19 12:15 RPR Titer Nonreactive (NONREACTIVE) 09/18/19 12:15 HIV 1&2 Antibody Screen Negative 09/18/19 12:15 HIV P24 Antigen Negative 09/18/19 12:15 Labs noted. Assessment: 09/21/19 12:19 AOX3, in no respiratory distress. Full ROM, ambulating in the unit. Withdrawal symptoms. Plan: continue detox.
[2019-09-21] MEDS: MELATONIN 5 MG TABLETS PO PRN (21:36)
[2019-09-21] MEDS: THIAMINE HCL 100 MG TABLET (FP) PO SCH (21:37)
[2019-09-22] MEDS ORDERED: chlordiazePOXIDE HCL 10 MG CAPSULE PO SCH (05:00)
[2019-09-22 06:57] VITALS: BP 114/80; PULSE 65; TEMP 97.4
[2019-09-22] MEDS ORDERED: METHADONE HCL 10 MG TABLET (FOR DETOX USE ONLY) PO ONE (10:00)
[2019-09-22] MEDS: PRENATAL VITAMINS W/ FOLIC ACID TABLET (FP) PO SCH (10:21)
[2019-09-22] MEDS: NICOTINE 21 MG/24 HOURS TOPICAL PATCH TD SCH (10:21)
[2019-09-22] MEDS: NICOTINE POLACRILEX 4 MG GUM BUC PRN (10:22)
--- NOTE | 2019-09-22 12:15 | DS ---
[facility] Detox Discharge Summary Admission Date: 09/18/19 Discharge Date: 09/22/19 - History Present History: Alcohol Dependence, Opioid Dependence Additional Comments: 53 years old male admitted on 09/18/19 for alcohol and opiate withdrawal sx management treating with librium and methadone detox regiment feeling better today prefers to leave the detox today as per estimated discharge day of 09/23/19 Mr hoyt is alert oriented x 3 speech clearly coherently ambulating steady gait cardiac s1s2 regular rate rhythm respiratory clear lungs bilaterally on auscultation extremities full range of motion Pertinent Past History: time for discharge 51 minutes - Physical Exam Results Vital Signs: Vital Signs Temperature 97.4 F L 09/22/19 05:31 Pulse Rate 65 09/22/19 05:31 Respiratory Rate 18 09/22/19 06:18 Blood Pressure 114/80 09/22/19 05:31 O2 Sat by Pulse Oximetry (%) Pertinent Admission Physical Exam Findings: alcohol and opiate withdrawal Vital Signs Temperature 97.4 F L 09/22/19 05:31 Pulse Rate 65 09/22/19 05:31 Respiratory Rate 18 09/22/19 06:18 Blood Pressure 114/80 09/22/19 05:31 O2 Sat by Pulse Oximetry (%) Laboratory Last Values WBC 10.8 K/mm3 (4.0-10.0) H 09/18/19 12:15 RBC 4.02 M/mm3 (4.00-5.60) 09/18/19 12:15 Hgb 11.7 GM/dL (11.7-16.9) 09/18/19 12:15 Hct 34.9 % (35.4-49) L 09/18/19 12:15 MCV 86.6 fl (80-96) 09/18/19 12:15 MCH 29.1 pg (25.7-33.7) 09/18/19 12:15 MCHC 33.6 g/dl (32.0-35.9) 09/18/19 12:15 RDW 15.4 % (11.9-15.9) 09/18/19 12:15 Plt Count 187 K/MM3 (134-434) 09/18/19 12:15 MPV 9.8 fl (7.5-11.1) 09/18/19 12:15 Sodium 136 mmol/L (136-145) 09/18/19 12:15 Potassium 4.0 mmol/L (3.5-5.1) 09/18/19 12:15 Chloride 99 mmol/L (98-107) 09/18/19 12:15 Carbon Dioxide 31 mmol/L (21-32) 09/18/19 12:15 Anion Gap 6 MMOL/L (8-16) L 09/18/19 12:15 BUN 15.3 mg/dL (7-18) 09/18/19 12:15 Creatinine 0.9 mg/dL (0.55-1.3) 09/18/19 12:15 Est GFR (CKD-EPI)AfAm 112.62 09/18/19 12:15 Est GFR (CKD-EPI)NonAf 97.17 09/18/19 12:15 Random Glucose 126 mg/dL (74-106) H 09/18/19 12:15 Calcium 8.8 mg/dL (8.5-10.1) 09/18/19 12:15 Total Bilirubin 0.8 mg/dL (0.2-1) 09/18/19 12:15 AST 24 U/L (15-37) 09/18/19 12:15 ALT 27 U/L (13-61) 09/18/19 12:15 Alkaline Phosphatase 80 U/L (45-117) 09/18/19 12:15 Total Protein 7.0 g/dl (6.4-8.2) 09/18/19 12:15 Albumin 3.6 g/dl (3.4-5.0) 09/18/19 12:15 RPR Titer Nonreactive (NONREACTIVE) 09/18/19 12:15 HIV 1&2 Antibody Screen Negative 09/18/19 12:15 HIV P24 Antigen Negative 09/18/19 12:15 encourage free from concentrated sugar lab noted - Treatment Hospital Course: Detox Protocol Followed, Detoxed Safely, Responded well, Discharged Condition Good, Rehab Referral Accepted Patient has Accepted a Rehab Referral to: community support AA/NA - Medication Discharge Medications: Ambulatory Orders Naloxone HCl [Narcan] 4 mg NS ASDIR PRN #1 spray 09/22/19 - Diagnosis (1) Alcohol dependence with uncomplicated withdrawal Status: Acute (2) Opioid dependence with withdrawal Status: Acute (3) Nicotine dependence Status: Acute Qualifiers: Nicotine product type: cigarettes Substance use status: in withdrawal Qualified Code(s): F17.213 - Nicotine dependence, cigarettes, with withdrawal - AMA Did Patient Leave Against Medical Advice: No CIWA Score - CIWA Score Nausea/Vomitin-No Nausea/No Vomiting Muscle Tremors: None Anxiety: 2 Agitation: 1-Slight > Activity Paroxysmal Sweats: 1-Minimal [place] Moist Orientation: 0-Oriented Tacttile Disturbances: 0-None Auditory Disturbances: 0-None Visual Disturbances: 0-None Headache: 0-None Present CIWA-Ar Total Score: 4 COWS (PN) - Opiate Withdrawal Resting Pulse: 0= [place] 80 or Below Sweatin= No chills or Flushing Restless Observation: 0= Sits Still Pupil Size: 0= Normal to Room Light Bone or Joint Aches: 1= Mild Discomfort Runny Nose/ Eye Tearin= Nasal Congestion GI Upset > 30mins: 1= Stomach Cramp Tremor Observation of Outstretched Hands: 1= Tremor [place], Not Seen Yawning Observation: 1= 1-2x During Session Anxiety or Irritability: 1=Feels Anxious/Irritable Goose Flesh Skin: 0=Smooth Skin COWS Score: 6
[2019-09-23] MEDS ORDERED: chlordiazePOXIDE HCL 10 MG CAPSULE PO ONE (05:00)
[2019-09-23] MEDS ORDERED: METHADONE HCL 5 MG TABLET (FOR DETOX USE ONLY) PO ONE (06:00)
== END 2019-09-22 11:30 | disposition home or self-care (01) | DRG 773 ==
LOC: YASAS 10:17 → Y3N 12:41
PROVIDERS: ADMIT Allergy & Immunology; ATTEND Allergy & Immunology
PROC: HZ2ZZZZ Detoxification Services for Substance Abuse Treatment (ICD-10-PCS; principal; 2019-09-18)
DX: F10.230 Alcohol dependence with withdrawal, uncomplicated (principal); F11.23 Opioid dependence with withdrawal; F17.213 Nicotine dependence, cigarettes, with withdrawal; M54.5 Low back pain; Z91.018 Allergy to other foods; Z91.013 Allergy to seafood
CPT/HCPCS: 36415; 80053; 85027; 86593; 87389

== ENCOUNTER 2020-07-13 13:57 | Inpatient (IN) | payer OTHER ==
[2020-07-13 19:01] VITALS: BMI 26.2
[2020-07-13] MEDS ORDERED: MAGNESIUM HYDROX 2400MG/30ML ORAL SUSPENSION 30 ML CUP PO PRN (20:24)
[2020-07-13] MEDS ORDERED: IBUPROFEN 400 MG TABLET (FP) PO PRN (20:24)
[2020-07-13] MEDS ORDERED: MAG HYDROX/AL HYDROX/SIMETH 30 ML UNIT-DOSE CUP PO PRN (20:24)
[2020-07-13] MEDS ORDERED: MENTHOL/PHENOL 1 EACH UD MM PRN (20:24)
[2020-07-13] MEDS ORDERED: ACETAMINOPHEN 325 MG TABLET (FP) PO PRN ×2 (20:24)
[2020-07-13] MEDS ORDERED: chlordiazePOXIDE HCL 25 MG CAPSULE PO PRN (20:24)
[2020-07-13] MEDS ORDERED: ONDANSETRON *ODT* 4 MG TABLET SL PRN (20:24)
[2020-07-13] MEDS ORDERED: MAGNESIUM CITRATE 300 ML BOTTLE PO PRN (20:24)
[2020-07-13] MEDS ORDERED: METHOCARBAMOL 500 MG TABLET PO PRN (20:24)
[2020-07-13] MEDS ORDERED: hydrOXYzine PAMOATE 25 MG CAPSULE (FP) PO PRN (20:24)
[2020-07-13] MEDS ORDERED: BISMUTH SUBSALICYLATE 524 MG/30 ML UD PO PRN (20:24)
[2020-07-13] MEDS ORDERED: chlordiazePOXIDE HCL 25 MG CAPSULE ONE (21:38)
[2020-07-13] MEDS: MELATONIN 5 MG TABLETS PO SCH (21:38)
[2020-07-13] MEDS: THIAMINE HCL 100 MG TABLET (FP) PO SCH (21:38)
[2020-07-13] MEDS: chlordiazePOXIDE HCL 25 MG CAPSULE PO SCH (22:04)
[2020-07-13] MEDS: NICOTINE POLACRILEX 2 MG GUM BUC PRN (22:24)
[2020-07-14] MEDS ORDERED: chlordiazePOXIDE HCL 25 MG CAPSULE ONE (05:37)
[2020-07-14] MEDS: chlordiazePOXIDE HCL 25 MG CAPSULE PO SCH ×2 (05:38→10:24)
[2020-07-14] MEDS ORDERED: METHADONE HCL 10 MG TABLET ONE ×2 (07:38→10:22)
[2020-07-14] MEDS ORDERED: METHADONE HCL 40 MG DISPERSABLE TABLET ONE ×2 (07:39→10:23)
[2020-07-14] MEDS ORDERED: METHADONE 40 MG, METHADONE 30 MG PO ONE (07:45)
[2020-07-14] MEDS ORDERED: METHADONE HCL 10 MG TABLET PO SCH (07:45)
[2020-07-14] MEDS: NICOTINE POLACRILEX 2 MG GUM BUC PRN ×3 (08:36→17:19)
[2020-07-14] MEDS: PRENATAL VITAMINS W/ FOLIC ACID TABLET (FP) PO SCH (10:24)
[2020-07-14] MEDS: METHADONE 40 MG, METHADONE 30 MG PO SCH (10:24)
[2020-07-14] MEDS: NICOTINE 21 MG/24 HOURS TOPICAL PATCH TD SCH (10:26)
[2020-07-14 10:30] LABS: HEMATOCRIT 41.7 % (35.4-49); HEMOGLOBIN 13.7 GM/dL (11.7-16.9); MCH 30.5 pg (25.7-33.7); MCHC 32.9 g/dl (32.0-35.9); MEAN CELL VOLUME 92.7 fl (80-96); MEAN PLT VOLUME 10.4 fl (7.5-11.1); PLATELET COUNT 165 K/MM3 (134-434); RDW 16.3 % (11.9-15.9); WHITE BLOOD COUNT 7.5 K/mm3 (4.0-10.0)
[2020-07-14 10:31] LABS: POTASSIUM 3.7 mmol/L (3.5-5.1)
[2020-07-14 10:33] LABS: CALCIUM 8.8 mg/dL (8.5-10.1)
[2020-07-14 10:34] LABS: ALBUMIN 3.1 g/dl (3.4-5.0)
[2020-07-14 10:37] LABS: CREATININE 0.9 mg/dL (0.55-1.3)
[2020-07-14 10:39] LABS: BILIRUBIN,TOTAL 1.2 mg/dL (0.2-1); TOT PROT 7.2 g/dl (6.4-8.2)
[2020-07-14] MEDS ORDERED: LORazepam 1 MG TABLET PO PRN (14:39)
[2020-07-14] MEDS: LORazepam 2 MG TABLET PO SCH ×2 (17:13→22:47)
[2020-07-14] MEDS: MELATONIN 5 MG TABLETS PO SCH (22:47)
[2020-07-14] MEDS: THIAMINE HCL 100 MG TABLET (FP) PO SCH (22:47)
[2020-07-15] MEDS ORDERED: METHADONE HCL 40 MG DISPERSABLE TABLET ONE (04:13)
[2020-07-15] MEDS ORDERED: METHADONE HCL 10 MG TABLET ONE (04:13)
[2020-07-15] MEDS ORDERED: chlordiazePOXIDE HCL 25 MG CAPSULE PO SCH (05:00)
[2020-07-15] MEDS: METHADONE 40 MG, METHADONE 30 MG PO SCH (06:29)
[2020-07-15] MEDS: LORazepam 2 MG TABLET PO SCH ×4 (06:29→22:30)
[2020-07-15] MEDS: PRENATAL VITAMINS W/ FOLIC ACID TABLET (FP) PO SCH (10:35)
[2020-07-15] MEDS: NICOTINE 21 MG/24 HOURS TOPICAL PATCH TD SCH (10:35)
[2020-07-15] MEDS: NICOTINE POLACRILEX 2 MG GUM BUC PRN ×4 (10:37→22:33)
[2020-07-15] MEDS: MELATONIN 5 MG TABLETS PO SCH (22:30)
[2020-07-15] MEDS: THIAMINE HCL 100 MG TABLET (FP) PO SCH (22:30)
[2020-07-16] MEDS ORDERED: chlordiazePOXIDE HCL 10 MG CAPSULE PO PRN
[2020-07-16] MEDS ORDERED: METHADONE HCL 40 MG DISPERSABLE TABLET ONE (04:15)
[2020-07-16] MEDS ORDERED: METHADONE HCL 10 MG TABLET ONE (04:15)
[2020-07-16] MEDS ORDERED: chlordiazePOXIDE HCL 10 MG CAPSULE PO SCH (05:00)
[2020-07-16] MEDS: LORazepam 1 MG TABLET PO SCH ×2 (06:07→10:27)
[2020-07-16] MEDS: METHADONE 40 MG, METHADONE 30 MG PO SCH (06:08)
[2020-07-16] MEDS: NICOTINE 21 MG/24 HOURS TOPICAL PATCH TD SCH (10:27)
[2020-07-16] MEDS: PRENATAL VITAMINS W/ FOLIC ACID TABLET (FP) PO SCH (10:27)
[2020-07-16] MEDS: NICOTINE POLACRILEX 2 MG GUM BUC PRN ×2 (13:41→17:01)
[2020-07-16 17:22] VITALS: BP 127/82; PULSE 77; TEMP 97.5
[2020-07-17] MEDS ORDERED: LORazepam 0.5 MG TABLET PO PRN
[2020-07-17] MEDS ORDERED: LORazepam 0.5 MG TABLET PO SCH (05:00)
[2020-07-17] MEDS ORDERED: chlordiazePOXIDE HCL 10 MG CAPSULE PO SCH (05:00)
[2020-07-17] MEDS ORDERED: PNEUMOC 13-VAL CONJ-DIP CRM/PF 0.5 ML DISP.SYRIN IM ONE (12:00)
[2020-07-17] MEDS ORDERED: PNEUMOCOCCAL 23 VACCINE 0.5 ML VIAL IM ONE (12:00)
[2020-07-18] MEDS ORDERED: LORazepam 0.5 MG TABLET PO ONE (05:00)
[2020-07-18] MEDS ORDERED: chlordiazePOXIDE HCL 10 MG CAPSULE PO ONE (05:00)
== END 2020-07-16 17:48 | disposition home or self-care (01) | DRG 773 ==
LOC: YASAS 13:57 → Y3N 07-14 09:09
PROVIDERS: ADMIT Allergy & Immunology; ATTEND Allergy & Immunology
PROC: HZ2ZZZZ Detoxification Services for Substance Abuse Treatment (ICD-10-PCS; principal; 2020-07-14)
DX: F11.23 Opioid dependence with withdrawal (principal); F10.230 Alcohol dependence with withdrawal, uncomplicated; F14.10 Cocaine abuse, uncomplicated; F17.213 Nicotine dependence, cigarettes, with withdrawal; F32.9 Major depressive disorder, single episode, unspecified; F41.9 Anxiety disorder, unspecified; R73.09 Other abnormal glucose; R74.01 Elevation of levels of liver transaminase levels; Z91.013 Allergy to seafood; Z56.0 Unemployment, unspecified
CPT/HCPCS: 36415; 80053; 82962; 85027; 86780; 93005; 93010; C9803; U0003

== ENCOUNTER 2021-10-05 12:46 | Inpatient (IN) | payer OTHER ==
[2021-10-05] MEDS ORDERED: LOPERAMIDE HCL 2 MG CAPSULE PO PRN (13:48)
[2021-10-05] MEDS ORDERED: BISMUTH SUBSALICYLATE 262 MG/15 ML BTL PO PRN (13:48)
[2021-10-05] MEDS ORDERED: MAG HYDROX/AL HYDROX/SIMETH 30 ML UNIT-DOSE CUP PO PRN (13:48)
[2021-10-05] MEDS ORDERED: ONDANSETRON *ODT* 4 MG TABLET SL PRN (13:48)
[2021-10-05] MEDS ORDERED: MAGNESIUM HYDROX 2400MG/30ML ORAL SUSPENSION 30 ML CUP PO PRN (13:48)
[2021-10-05] MEDS ORDERED: ACETAMINOPHEN 325 MG TABLET (FP) PO PRN ×2 (13:48)
[2021-10-05] MEDS ORDERED: chlordiazePOXIDE HCL 25 MG CAPSULE PO PRN (13:48)
[2021-10-05] MEDS ORDERED: MENTHOL/PHENOL 1 EACH UD MM PRN (13:48)
[2021-10-05] MEDS ORDERED: methaDONE HCL 10 MG TABLET (FOR DETOX USE ONLY) PO ONE ×2 (13:48→18:45)
[2021-10-05] MEDS ORDERED: MAGNESIUM CITRATE 300 ML BOTTLE PO PRN (13:48)
[2021-10-05] MEDS ORDERED: IBUPROFEN 400 MG TABLET (FP) PO PRN (13:48)
[2021-10-05 15:41] VITALS: BMI 23.9
[2021-10-05] MEDS: NICOTINE 10 MG CARTRIDGE (INHALER) IH PRN ×2 (18:39→23:05)
[2021-10-05] MEDS: chlordiazePOXIDE HCL 25 MG CAPSULE PO SCH ×3 (18:40→23:03)
[2021-10-05] MEDS: PRENATAL VITAMINS W/ FOLIC ACID TABLET (FP) PO SCH ×2 (18:40→18:58)
[2021-10-05] MEDS: hydrOXYzine PAMOATE 25 MG CAPSULE (FP) PO SCH ×3 (18:40→23:04)
[2021-10-05] MEDS: NICOTINE 21 MG/24 HOURS TOPICAL PATCH TD SCH (18:48)
[2021-10-05] MEDS: NICOTINE POLACRILEX 2 MG GUM BUC PRN (22:40)
[2021-10-05] MEDS: THIAMINE HCL 100 MG TABLET (FP) PO SCH (23:04)
[2021-10-05] MEDS: cloNIDine HCL 0.1 MG TABLET PO PRN (23:04)
[2021-10-05] MEDS: MELATONIN 5 MG TABLETS PO SCH (23:04)
[2021-10-06] MEDS: hydrOXYzine PAMOATE 25 MG CAPSULE (FP) PO SCH ×5 (07:00→22:20)
[2021-10-06] MEDS: chlordiazePOXIDE HCL 25 MG CAPSULE PO SCH ×2 (07:00→10:54)
[2021-10-06] MEDS ORDERED: methaDONE HCL 10 MG TABLET (FOR DETOX USE ONLY) ONE (08:52)
[2021-10-06] MEDS: PRENATAL VITAMINS W/ FOLIC ACID TABLET (FP) PO SCH (10:52)
[2021-10-06] MEDS: NICOTINE 21 MG/24 HOURS TOPICAL PATCH TD SCH (10:52)
[2021-10-06] MEDS: NICOTINE POLACRILEX 2 MG GUM BUC PRN ×4 (10:55→22:22)
[2021-10-06] MEDS: NICOTINE 10 MG CARTRIDGE (INHALER) IH PRN ×2 (10:55→22:23)
[2021-10-06 11:40] LABS: HEMATOCRIT 36.8 % (35.4-49); HEMOGLOBIN 12.2 GM/dL (11.7-16.9); MCH 27.8 pg (25.7-33.7); MCHC 33.1 g/dl (32.0-35.9); MEAN PLT VOLUME 9.7 fl (7.5-11.1); PLATELET COUNT 121 10^3/uL (134-434); RBC 4.39 M/mm3 (4.00-5.60); RDW 15.7 % (11.9-15.9); WHITE BLOOD COUNT 5.5 K/mm3 (4.0-10.0)
[2021-10-06 11:53] LABS: ALBUMIN 2.9 g/dl (3.4-5.0); BLOOD UREA NITROGEN 12.1 mg/dL (7-18)
[2021-10-06 11:56] LABS: CREATININE 0.9 mg/dL (0.55-1.3)
[2021-10-06 11:57] LABS: BILIRUBIN,TOTAL 0.4 mg/dL (0.2-1); TOT PROT 6.5 g/dl (6.4-8.2)
[2021-10-06] MEDS ORDERED: diazePAM 5 MG TABLET PO PRN (12:00)
[2021-10-06] MEDS: METHOCARBAMOL 500 MG TABLET PO PRN ×2 (13:09→22:20)
[2021-10-06] MEDS: cloNIDine HCL 0.1 MG TABLET PO PRN (18:44)
[2021-10-06] MEDS: diazePAM 5 MG TABLET PO SCH ×2 (18:44→22:19)
[2021-10-06] MEDS: THIAMINE HCL 100 MG TABLET (FP) PO SCH (22:20)
[2021-10-06] MEDS: MELATONIN 5 MG TABLETS PO SCH (22:20)
[2021-10-07] MEDS ORDERED: chlordiazePOXIDE HCL 25 MG CAPSULE PO SCH (05:00)
[2021-10-07] MEDS: hydrOXYzine PAMOATE 25 MG CAPSULE (FP) PO SCH (05:56)
[2021-10-07] MEDS: diazePAM 5 MG TABLET PO SCH (05:56)
[2021-10-07 09:13] VITALS: BP 123/79; PULSE 61; TEMP 97.9
[2021-10-07] MEDS ORDERED: methaDONE HCL 10 MG TABLET (FOR DETOX USE ONLY) PO ONE (10:00)
[2021-10-08] MEDS ORDERED: chlordiazePOXIDE HCL 10 MG CAPSULE PO PRN
[2021-10-08] MEDS ORDERED: chlordiazePOXIDE HCL 10 MG CAPSULE PO SCH (05:00)
[2021-10-08] MEDS ORDERED: diazePAM 5 MG TABLET PO SCH (06:00)
[2021-10-09] MEDS ORDERED: chlordiazePOXIDE HCL 10 MG CAPSULE PO SCH (05:00)
[2021-10-09] MEDS ORDERED: diazePAM 5 MG TABLET PO SCH (06:00)
[2021-10-09] MEDS ORDERED: methaDONE HCL 10 MG TABLET (FOR DETOX USE ONLY) PO ONE (10:00)
[2021-10-10] MEDS ORDERED: chlordiazePOXIDE HCL 10 MG CAPSULE PO ONE (05:00)
[2021-10-10] MEDS ORDERED: diazePAM 5 MG TABLET PO ONE (06:00)
== END 2021-10-07 11:12 | disposition left against medical advice (07) | DRG 773 ==
LOC: YASAS 12:46 → Y3N 14:17
PROVIDERS: ADMIT Allergy & Immunology; ATTEND Allergy & Immunology
PROC: HZ2ZZZZ Detoxification Services for Substance Abuse Treatment (ICD-10-PCS; principal; 2021-10-05)
DX: F11.23 Opioid dependence with withdrawal (principal); F10.230 Alcohol dependence with withdrawal, uncomplicated; F14.20 Cocaine dependence, uncomplicated; F17.210 Nicotine dependence, cigarettes, uncomplicated; F41.9 Anxiety disorder, unspecified; M54.50 Low back pain, unspecified; G89.29 Other chronic pain; F91.8 Other conduct disorders; Z91.19 Patient's noncompliance with other medical treatment and regimen
CPT/HCPCS: 36415; 80053; 85027; 86480; 86780; 87811; C9803; J0735; U0003; U0005

== ENCOUNTER 2023-11-08 15:08 | Inpatient (IN) | payer OTHER ==
[2023-11-08 17:11] VITALS: BMI 24.7
[2023-11-08] MEDS ORDERED: NALOXONE HCL 0.4 MG/ML VIAL IM PRN (19:40)
[2023-11-08] MEDS ORDERED: ACETAMINOPHEN 325 MG TABLET (FP) PO PRN (19:40)
[2023-11-08] MEDS ORDERED: IBUPROFEN 400 MG TABLET (FP) PO PRN (19:40)
[2023-11-08] MEDS ORDERED: POLYETHYLENE GLYCOL (HEALTHYLAX) 3350 17 GM PACKET PO PRN (19:40)
[2023-11-08] MEDS ORDERED: NALOXONE HCL (KLOXXADO) 8 MG SPRAY NS PRN (19:40)
[2023-11-08] MEDS ORDERED: MAGNESIUM HYDROX 2400MG/30ML ORAL SUSPENSION 30 ML CUP PO PRN (19:40)
[2023-11-08] MEDS ORDERED: BENZOCAINE/MENTHOL (CHLORASEPTIC ) LOZENGE MM PRN (19:40)
[2023-11-08] MEDS ORDERED: ONDANSETRON *ODT* 4 MG TABLET SL PRN (19:40)
[2023-11-08] MEDS ORDERED: BISMUTH SUBSALICYLATE 524 MG/30 ML PO PRN (19:40)
[2023-11-08] MEDS ORDERED: guaiFENesin 600 MG TABLET.ER (FP) PO PRN (19:40)
[2023-11-08] MEDS ORDERED: MAG HYDROX/AL HYDROX/SIMETH 30 ML UNIT-DOSE CUP PO PRN (19:40)
[2023-11-08] MEDS ORDERED: DICYCLOMINE HCL 10 MG CAPSULE PO PRN (19:40)
[2023-11-08] MEDS ORDERED: BENZONATATE 200 MG CAPSULE PO PRN (19:40)
[2023-11-08] MEDS ORDERED: LOPERAMIDE HCL 2 MG CAPSULE PO PRN (19:40)
[2023-11-08] MEDS ORDERED: cloNIDine HCL 0.1 MG TABLET ONE (20:19)
[2023-11-08] MEDS: cloNIDine HCL 0.1 MG TABLET PO PRN (20:20)
[2023-11-08] MEDS: CEPHALEXIN MONOHYDRATE 500 MG CAPSULE (UD) PO SCH (22:42)
[2023-11-08] MEDS: diazePAM 5 MG TABLET PO SCH (22:42)
[2023-11-08] MEDS: THIAMINE HCL 100 MG TABLET (FP) PO SCH (22:42)
[2023-11-08] MEDS: MELATONIN 5 MG TABLETS PO SCH (22:42)
[2023-11-08] MEDS: NICOTINE POLACRILEX 2 MG GUM BUC PRN (22:43)
[2023-11-09] MEDS: IBUPROFEN 600 MG TABLET (FP) PO PRN (05:46)
[2023-11-09] MEDS ORDERED: methaDONE HCL 10 MG TABLET PO SCH (08:30)
[2023-11-09] MEDS: PRENATAL VITAMINS W/ FOLIC ACID TABLET (FP) PO SCH (09:37)
[2023-11-09 12:18] LABS: HEMATOCRIT 38.9 % (35.4-49); HEMOGLOBIN 12.8 GM/dL (11.7-16.9); MEAN PLT VOLUME 9.9 fl (7.5-11.1); PLATELET COUNT 160 10^3/uL (134-434); RBC 4.75 M/mm3 (4.00-5.60); RDW 17.4 % (11.9-15.9); WHITE BLOOD COUNT 6.2 K/mm3 (4.0-10.0)
[2023-11-09 12:41] LABS: BLOOD UREA NITROGEN 8.8 mg/dL (7-18); CALCIUM 8.7 mg/dL (8.5-10.1)
[2023-11-09 12:42] LABS: ALBUMIN 2.9 g/dl (3.4-5.0); CO2 29 mmol/L (21-32); GLUCOSE,RANDOM 130 mg/dL (74-106)
[2023-11-09 12:44] LABS: SGOT/AST 25 U/L (15-37)
[2023-11-09 12:45] LABS: CREATININE 0.8 mg/dL (0.55-1.3); SGPT/ALT 16 U/L (13-61)
[2023-11-09 12:46] LABS: BILIRUBIN,TOTAL 0.4 mg/dL (0.2-1); TOT PROT 6.4 g/dl (6.4-8.2)
[2023-11-09 12:47] LABS: ALK PHOS 79 U/L (45-117)
[2023-11-09 12:48] LABS: ANION GAP 7 mmol/L (4-13); CHLORIDE 104 mmol/L (98-107); POTASSIUM 3.9 mmol/L (3.5-5.1); SODIUM 140 mmol/L (136-145)
[2023-11-09 14:42] LABS: HIV INTERPRETATION NEGATIVE (NEGATIVE)
[2023-11-09] MEDS: NICOTINE POLACRILEX 4 MG GUM BUC PRN (15:25)
[2023-11-10] MEDS: diazePAM 5 MG TABLET PO SCH (05:19)
[2023-11-10] MEDS: amLODIPine BESYLATE 5 MG TABLET (FP) PO SCH (15:58)
[2023-11-10] MEDS: METHOCARBAMOL 500 MG TABLET PO PRN (21:59)
[2023-11-11] MEDS: diazePAM 5 MG TABLET PO PRN (01:34)
[2023-11-11] MEDS: diazePAM 5 MG TABLET PO SCH (05:55)
[2023-11-11] MEDS: hydrOXYzine PAMOATE 25 MG CAPSULE (FP) PO PRN (21:09)
[2023-11-12] MEDS: diazePAM 5 MG TABLET PO ONE (06:05)
[2023-11-12 09:22] VITALS: BP 150/91; PULSE 71; RESP 17; TEMP 97.8
== END 2023-11-12 10:35 | disposition home or self-care (01) | DRG 773 ==
LOC: YASAS 15:08 → Y3N 20:02
PROVIDERS: ADMIT Allergy & Immunology; ATTEND Surgery
PROC: HZ2ZZZZ Detoxification Services for Substance Abuse Treatment (ICD-10-PCS; principal; 2023-11-08)
DX: F10.230 Alcohol dependence with withdrawal, uncomplicated (principal); F11.20 Opioid dependence, uncomplicated; F14.20 Cocaine dependence, uncomplicated; F17.210 Nicotine dependence, cigarettes, uncomplicated; F19.24 Other psychoactive substance dependence with psychoactive substance-induced mood disorder; E78.5 Hyperlipidemia, unspecified; I10 Essential (primary) hypertension; M54.50 Low back pain, unspecified; G89.29 Other chronic pain; Z86.19 Personal history of other infectious and parasitic diseases; Z99.89 Dependence on other enabling machines and devices; Z86.59 Personal history of other mental and behavioral disorders
CPT/HCPCS: 36415; 80053; 80307; 85027; 86780; 87389; 93005; 93010